=== PATIENT | female | born 1990 | race Caucasian/White ===

== ENCOUNTER 2024-09-11 13:49 | Outpatient (CLI) | payer OTHER, SELFPAY ==
--- OUTSIDE RECORDS SUMMARY | 2024-09-11 13:54 | XMS_ITS | Continuity of Care Document ---
Author Organization [facility] [place] Address [address] [place] [place] [address] Care Team Providers Care Teletypewriter Operator Name Role Phone RHIANNON GANNON Primary Care Provider Assessment No assessment recorded. Plan of Treatment Reminders Order Date Submit Date Provider Last Modified By Organization Details Last Modified Time Details Appointments U/S OB SNEAK PEAK 2024 10:30A M ULTRASOUND Not available Not available Not available OB SCREEN 2024 11:15A M Betty Baker CNM Not available Not available Not available Lab None recorde d. Referral None recorde d. Procedures None recorde d. Surgeries None recorde d. Imaging US, obstetr ic, transva ginal 2024 025 [email or web address] [place], [address], [place], [address], 09/11/2024 13:25:15 Medication Orders None recorde d. Patient TargetsNo targets recorded. Patient InstructionsNo instructions recorded. Reason for Referral None Reported. Results Created Date Observation Date Name Description Value Unit Range Abnormal Flag Note LastModifiedBy Organization Detail LastModifiedTime 09/11/1909/11/2024 US, obste tric, trans vagin al No observ ation record ed. [email or web address] [place] [address], [place], [address], 09/11/2024 13:24:12 09/11/19 25 09/11/2024 US, obste tric, trans vagin al No observ ation record ed. [id number], [place], [address], 09/11/2024 12:35:03 Result Notes None recorded. Procedures Surgical History Date Name Laterality Status Provider Name and Address Organization Details Recorded Time 05/03/20 23 Nexplanon Removal completed JUAN Hansen [address], [place], [address], [facility] 05/03/2023 14:26:13 05/15/20 20 Control Implant Insertion completed Betty Baker CNM [address], [place], [address], [facility] 05/15/2020 14:42:53 07/31/19 20 Date of Last Pap Smear completed [facility] 04/27/2020 16:22:24 11/22/19 16 procedure on gallbladder completed [facility] 04/27/2020 15:09:21 07/24/19 14 Tonsillectomy completed [facility] 09/11/2024 12:56:21 07/24/19 13 extraction of wisdom tooth completed [facility] 09/11/2024 12:55:48 07/24/19 07 procedure on wrist completed [facility] 09/11/2024 12:56:10 07/24/19 05 procedure on wrist completed [facility] 09/11/2024 12:55:55 Imaging Results Imaging Date Name Status LastModified by Organization Details LastModified Time 09/11/2024 US, obstetric, transvaginal completed [email or web address] [place] [address], [place], [address], 09/11/2024 13:24:12 Procedure Notes None recorded. Medical Equipment None Reported. Allergies No known drug allergies Medications Name Sig Start Date Stop Date Status Note LastModified by Organization Details LastModified Time albuterol sulfate 2.5 mg/3 mL (0.083 %) solution for nebulizat ion USE 1 VIAL VIA NEBULIZE R FOUR TIMES DAILY NEEDED FOR SEVERE ASTHMA ATTACK active Not Available Not Available No t Available fluconazo le 150 mg tablet TAKE 1 TABLET BY MOUTH FOR 1 DAY DIRECTED 09/11 completed Not Available Not Available Not Available phentermi ne 37.5 mg tablet TAKE 1 TABLET BY MOUTH EVERY DAY 09/11 completed Not Available Not Available Not Available monteluka st 10 mg tablet TAKE 1 TABLET BY MOUTH DAILY IN THE EVENING 09/11 completed Not Available Not Available Not Available albuterol sulfate HFA 90 mcg/actua tion aerosol inhaler INHALE 2 PUFFS BY MOUTH EVERY 4 TO 6 HOURS NEEDED active Not Available Not Available No t Available fluticaso ne propionat e 110 mcg/actua tion HFA aerosol inhaler INHALE 1 TO 2 PUFFS BY MOUTH TWICE DAILY 09/11 completed Not Available Not Available Not Available amoxicill in 875 mg-potass ium clavulana te 125 mg tablet TAKE 1 TABLET BY MOUTH EVERY 12 HOURS FOR 7 DAYS 09/11 completed Not Available Not Available Not Available Spiriva with HandiHale r 18 mcg and inhalatio n capsules INHALE THE CONTENTS OF 1 CAPSULE VIA INHALATI ON DEVICE EVERY DAY 09/01 completed Not Available Not Available Not Available fluticaso ne propionat e 09/11 completed Not Available Not Available Not Available Symbicort 160 mcg-4.5 mcg/actua tion HFA aerosol inhaler INHALE 2 PUFFS BY MOUTH TWICE DAILY 09/01 completed Not Available Not Available Not Available Symbicort 80 mcg-4.5 mcg/actua tion HFA aerosol inhaler 09/01 completed Not Available Not Available Not Available Nexplanon 68 mg subdermal implant Inject by subcutan eous route. 09/01 completed nexplano n inserted 05/15/20 removal date 05/15/20 Not Available Not Available Not Available ProAir RespiClic k 90 mcg/actua tion breath activated inhale 2 puff by inhalati on route every 4 - 6 hours as needed 09/01 completed Prescrib darion Muhammad e: No [facility]ify By: [email or web address] Encounte r DateTime : 03/20/20 10:15:00 AM Not Available Not Available Not Available Vienva 0.1 mg-20 mcg tablet TAKE 1 TABLET BY MOUTH EVERY DAY 09/01 completed Not Available Not Available Not Available Wixela Inhub 250 mcg-50 mcg/dose powder for inhalatio n 09/01 completed Not Available Not Available Not Available Trelegy Ellipta 200 mcg-62.5 mcg-25 mcg powder for inhalatio n INHALE 1 PUFF BY MOUTH EVERY DAY 09/11 completed Not Available Not Available Not Available Vitals Date Recorded Body height Body mass index (BMI) Body weight Systolic blood pressure Diastolic blood pressure Provider Name and Address Organization Details Last Updated DateTime 09/11/2024 170.18 cm 39.9 kg/m2 360091.0 5 g 150 mm[Hg] 100 mm[Hg] Mehreen Amado [facility] 12:18:49 Social History Question Answer Notes LastModified by Organizat ion Details LastModified Time Tobacco Smoking Status Current Every Day Smoker Mehreen Amado [facility] 05/15/2020 13:29:13 What Is Your Level Of Alcohol Consumption? None [email or web address] Information not available 09/11/2024 Are You Blind Or Do You Have Difficulty Seeing? No Information not available 09/01/2023 What Is Your Level Of Caffeine Consumption? Heavy Information not available 09/01/2023 In The 14 Days Before Symptom Onset, Have You Had Close Contact With A Laboratory-confir med COVID-19 While That Case Was Ill? No Information not available 09/01/2023 In The 14 Days Before Symptom Onset, Have You Had Close Contact With A Person Who Is Under Investigation For COVID-19 While That Person Was Ill? No Information not available 09/01/2023 Have You Been To An Area Known To Be High Risk For COVID-19? No Information not available 09/01/2023 Are You Deaf Or Do You Have Serious Difficulty Hearing? No Information not available 09/01/2023 What Type Of Diet Are You Following? REGULAR Information not available 09/01/2023 Do You Or Have You Ever Used E-cigarettes Or Vape? Current User Of Electronic Cigarettes [email or web address] Information not available 05/15/2020 What Is The Highest Grade Or Level Of School You Have Completed Or The Highest Degree You Have Received? 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 No Information not available 09/01/2023 What Was The Date Of Your Most Recent Tobacco Screening? 09/11/2024 Information not available 09/11/2024 Do You Use Protection During Sex? No Information not available 09/01/2023 Do You Use Your Seat Belt Or Car Seat Routinely? Yes Information not available 09/01/2023 Do You Have Smoke And Carbon Monoxide Detectors In Your Home? Yes Information not available 09/01/2023 Do You Or Have You Ever Used Smokeless Tobacco? Never Used Smokeless Tobacco [email or web address] Information not available 05/15/2020 How Much Tobacco Do You Smoke? No Information not available 09/01/2023 Do You Feel Stressed (tense, Restless, Nervous, Or Anxious, Or Unable To Sleep At Night)? [id number] Information not available 09/01/2023 Do You Use Any Illicit Or Recreational Drugs? Yes [email or web address] Information not available 09/11/2024 Do You Use Sunscreen Routinely? Yes Information not available 09/01/2023 Have You Used IV Drugs? No Information not available 09/01/2023 Sex: Unknown Functional Status Question Answer Note LastModified by Organizat ion Details LastModified Time Do you have difficulty walking or climbing stairs? No [email or web address] Information not available 09/11/2024 Are you able to walk? YESWOREST Information not available 09/01/2023 Are you able to care for yourself? Yes [email or web address] Information not available 09/11/2024 Do you have difficulty dressing or bathing? No [email or web address] Information not available 09/11/2024 What is your exercise level? None Information not available 09/01/2023 Mental Status None recorded. Family History Relationship Description Onset Age of this Age Resolved Age Notes LastModified by Organization Details LastModified Time Father Heart disease [email or web address] Not available 2019 15:00:43 Father Diabetes mellitus [email or web address] Not available 2019 15:06:39 Father Asthma jgumber Not available 15:06:49 Father Hypertensive disorder jgumber Not available 2019 15:06:58 Maternal Grandmother Family history of breast cancer [email or web address] Not available 2024 11:30:11 Paternal Grandfather Blood coagulation disorder jgumber Not available 2019 15:07:31 Paternal Grandfather Malignant tumor of colon jgumber Not available 2019 15:07:47 Maternal Grandfather Malignant tumor of colon jgumber Not available 2019 15:07:47 Maternal Grandfather Mental disorder psychi atric diseas e jgumber Not available 04/27/2020 15:08:11 Notes:Father: Asthma, Hypert ension, Diabetes mellitus, Heart disease Maternal grandfather: Cancer, colon, psychiatric disease Maternal grandmother: breast Paternal grandfather: Cancer, colon, Bleeding disorder Medical History Condition Response Allergies (Food, seasonal, environmental ) Y Other Y Breast Cancer N Drug/Latex Allergies/Reactions N Blood Transfusion N Dermatologic Disorders N Lung Disease N Defects or Inherited Disease N Breast Problem N Gestational Diabetes N Hematologic disorders N Anesthesia Complications N History of STI N Deep Vein Thrombosis N Polycystic ovary syndrome N Anxiety Disorder N Autoimmune disease N Arthritis N Infertility N Polyps N Acid Reflux (GERD) N History of abnormal pap N Cancer N Stroke N Varicosities N Neurologic/Epilepsy Y Endometriosis N High Cholesterol N Headaches N Fibromyalgia N Kidney Disease N Heart Problems N Kidney or Bladder Problems N Thyroid Problems N GI Problems N Eating Disorder N Anemia N Art (IVF or FET) N Psychiatric Illness N Ovarian Cancer N Diabetes N Pulmonary (TB, Asthma) N Hepatitis/Liver Disease N No Past Medical History N Eczema N Urinary Tract Infection N Abuse/Domestic Violence N Asthma Y Trauma/Violence N Depression/ depression N Heart Disease N Pre-Eclampsia N Hypertension N Osteoporosis N Thrombophilias N Gynecological History Statement/Question Response Date of Last Mammogram Flow Moderate Date of LMP 07/12/2024 N Was last menstrual period normal Y STIs/STDs N Date of Last Colonoscopy Desired Control Method Abnormal Pap N On BCP's at Conception? N HPV Vaccine Y Duration of Flow (days) 5 Current Control Method None Age at First Child 29 Are cycles usually normal Y Frequency of Cycle (Q days) 30 Sexually Active? Y Menses Monthly Y Date of DEXA bone scan Date of Last Pap Smear 07/31/2019 Sexual Problems? N LMP Approximate N Obstetrics History GPAL:G 2 P 1 0 1 1 Type Value Full Term 1 Spontaneous 1 Living 1 Total 2 Past Encounters Encounter ID Performer Location Encounter Start Date Encounter Closed Date Diagnosis/Indication Diagnosis SNOMED-CT Code Diagnosis ICD10 Code Diagnosis Note [id number] Linda Stackdc [place] [address] [address] 09/11/2024 11:29:52 09/11/2024 12:26:58 Missed miscarriage 08087830 O02.1 Z3A.01 [id number] Betty Baker CNM [place] [address] [address] 09/11/2024 11:30:08 09/11/2024 12:54:25 Threatened miscarriage 95880019 O20.0 plan labs today and mondayrevi ewed precaution scall if any changesdis cussed options if HCG does not decrease Health Concerns Section Related Observation LastModified by Organization Detai ls LastModified Time None Recorded Concern Status LastModified by Organization Details LastModified Time None Recorded Payers Encounter Date Sequence Insurance Name Policy Number Policy Harris Covered Member ID Harris Member ID Guarantor Name 09/11/2024 1 [facility] ON OR AFTER 01/21/21 (MEDICAID REPLACEMENT - HMO) Miroslava Bailey [id number] Miroslava Bailey Notes Date Note Type Note Provider Name and Address Organization Details Recorded Time 09/11/2024 text/html +UPT, spotting, no crampingblood type B+ Betty Baker CNM [address], [place], [address], [facility] 09/11/2024 12:47:21 OBGyn Episode No OBEpisode recorded.
--- OUTSIDE RECORDS SUMMARY | 2024-09-11 13:54 | XMS_ITS | CCD ---
Author Organization [facility] Address [address] [place] [address] Care Team Providers Care Superintendent Board Mill Name Role Phone Unavailable Primary Care Provider Unavailabl e Allergies No known active allergies Medications albuterol HFA (PROVENTIL HFA;VENTOLIN HFA) 90 mcg/actuation inhaler 02/01/2022 Active Symbicort 160-4.5 mcg/actuation inhaler Inhale 2 puffs in the morning and at bedtime. 01/22/2022 Active montelukast (SINGULAIR) 10 mg tablet 01/30/2022 Active Spiriva with HandiHaler 18 mcg inhalation capsule 01/30/2022 Active Active Problems No known active problems Social History Tobacco Use Types Packs/Day Years Used Date Smoking Tobacco: Never Smokeless Tobacco: Never Tobacco Cessation:Counseling Given: Not Answered Alcohol Use Standard Drinks/Week Not Currently 0 (1 standard drink = 0.6 oz pure alcohol) Comments Unknown Sex and Gender Information Value Date Recorded Sex Assigned at Not on file Legal Sex Female 5:44 AM PDT Gender Identity Female 02/02/2022 6:02 AM PDT Sexual Orientation Not on file Last Filed Vital Signs Vital Sign Reading Time Taken Comments Blood Pressure 130/75 02/02/2022 9:27 AM CDT Pulse 83 02/02/2022 9:27 AM CDT Temperature - - Respiratory Rate - - Oxygen Saturation - - Inhaled Oxygen Concentration - - Weight - - Height - - Body Mass Index - - Plan of Treatment Not on file Procedures Procedure Name Priority Date/Time Associated Diagnosis Comments NEW PATIENT PANO Routine 02/02/2022 9:30 AM CDT NEW PATIENT SPECIAL EXAM - ADULT Routine 02/02/2022 9:30 AM CDT from Last 3 Months or Most Recently Relevant to Health Maintenance
--- OUTSIDE RECORDS SUMMARY | 2024-09-11 13:54 | XMS_ITS | Encounter Summary ---
Author Organization [facility] Address [address] [place] [address] Care Team Providers Care Plaster Maker Name Role Phone Unavailable Primary Care Provider Unavailabl e Prior Encounters Date Type Department Care Team Description 02/02/2022 9:30 AM CDT Office Visit [facility] [address] [place] [address] Xavi Peoples DDS Last Filed Vital Signs Vital Sign Reading [...] Procedure Name Priority Date/Time Associated Diagnosis Comments 4 EXTRACTION, ERUPTED TOOTH REQUIRING REMOVAL OF BONE AND/OR SECTIONING OF TOOTH Routine 02/02/2022 9:30 AM CDT DENTAL PLAN ENROLL 1 Routine 02/02/2022 9:30 AM CDT NEW PATIENT PHOTO INTRA ORAL Routine 02/02/2022 9:30 AM CDT NEW PATIENT PHOTO INTRA ORAL Routine 02/02/2022 9:30 AM CDT NEW PATIENT PHOTO INTRA ORAL Routine 02/02/2022 9:30 AM CDT NEW PATIENT PHOTO INTRA ORAL Routine 02/02/2022 9:30 AM CDT NEW PATIENT PANO Routine 02/02/2022 9:30 AM CDT NEW PATIENT SPECIAL EXAM - ADULT Routine 02/02/2022 9:30 AM CDT 14 CEREC CROWN Routine 02/02/2022 12:00 AM CDT 14 ROOT CANAL Routine 02/02/2022 12:00 AM CDT Visit Diagnoses Not on file
--- OUTSIDE RECORDS SUMMARY | 2024-09-11 13:54 | XMS_ITS ---
Author Organization [facility] Address [address] [place] [address] Care Team Providers Care Sign Board Erector Name Role Phone Unavailable Unavailable Unavailable Surgery Details Not on file Complications Check Surgery Details section. Procedure Estimated Blood Loss Check Surgery Details section. Procedure Findings Check Surgery Details section. Procedure Specimens Taken Check Surgery Details section.
--- OUTSIDE RECORDS SUMMARY | 2024-09-11 13:54 | XMS_ITS | Continuity of Care Document ---
Author Organization [facility] Address [address] [place] [address] Care Team Providers Care Shot Polisher Name Role Phone RHIANNON GANNON Primary Care [...] recorde d. Surgeries None recorde d. Imaging None recorde d. Medication Orders None recorde d. Patient TargetsNo targets recorded. Patient InstructionsNo instructions recorded. Reason for Referral None Reported. Results Created Date Observation Date Name Description Value Unit Range Abnormal Flag Note LastModifiedBy Organization Detail LastModifiedTime 09/11/1909/11/2024 US, obste tric, trans vagin al No observ ation record ed. [email or web address] [place] [address], [place], [address], 09/11/2024 13:24:12 09/11/19 25 09/11/2024 US, obste tric, trans vagin al No observ ation record ed. [email or web address], [place], [address], 09/11/2024 12:35:03 Result Notes None recorded. Procedures Surgical History Date Name Laterality Status Provider Name and Address Organization Details Recorded Time 05/03/20 23 Nexplanon Removal completed JUAN Hansen [address], [place], [address], [facility] 05/03/2023 14:26:13 05/15/20 20 Control Implant Insertion completed Betty Baker CNM [address], [place], [address], [facility] 05/15/2020 14:42:53 07/31/19 20 Date of Last Pap Smear completed [facility] 04/27/2020 16:22:24 11/22/19 16 procedure on gallbladder completed [facility] 04/27/2020 15:09:21 07/24/19 14 Tonsillectomy completed [facility] 09/11/2024 12:56:21 07/24/19 13 extraction of wisdom tooth completed [facility] 09/11/2024 12:55:48 07/24/19 07 procedure on wrist completed [facility] 09/11/2024 12:56:10 07/24/19 05 procedure on wrist completed [facility] 09/11/2024 12:55:55 Imaging Results None recorded. Procedure Notes None recorded. Medical Equipment None [...] 6 hours as needed 09/01 completed Prescrib ed Elsew e: No Locat ion: [facility] odify By: desi subramanian DateTime : 03/20/20 10:15:00 AM Not Available Not Available Not Available Vienva 0.1 mg-20 mcg tablet TAKE 1 TABLET BY MOUTH EVERY DAY 09/01 completed Not Available Not Available Not Available Wixela Inhub 250 mcg-50 mcg/dose powder for inhalatio n 09/01 completed Not Available Not Available Not Available Bert Ellipta 200 mcg-62.5 mcg-25 mcg powder for inhalatio n INHALE 1 PUFF BY MOUTH EVERY DAY 09/11 completed Not Available Not Available Not Available Vitals Date Recorded Body height Body mass index (BMI) Body weight Systolic blood pressure Diastolic blood pressure Provider Name and Address Organization Details Last Updated DateTime 09/11/2024 170.18 cm 39.9 kg/m2 789073.0 5 g 150 mm[Hg] 100 mm[Hg] Mehreen Amado [facility] 12:18:49 Social History Question Answer Notes LastModified by Organizat ion Details LastModified Time Tobacco Smoking Status Current Every Day Smoker Mehreen Amado [facility], [facility] 05/15/2020 13:29:13 What Is Your Level Of Alcohol Consumption? None [email or web address] Information not available 09/11/2024 Are You Blind [...] Or Vape? Current User Of Electronic Cigarettes [email or web address] Information not available 05/15/2020 What Is The Highest Grade Or Level Of School You Have Completed Or The Highest Degree You Have Received? 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 No Information not available 09/01/2023 What Was The Date Of Your Most Recent Tobacco Screening? 09/11/2024 [email or web address] Information not available 09/11/2024 Do You Use Protection During Sex? No Information not available 09/01/2023 Do You Use Your Seat Belt Or Car Seat Routinely? Yes Information not available 09/01/2023 Do You Have Smoke And Carbon Monoxide Detectors In Your Home? Yes Information not available 09/01/2023 Do You Or Have You Ever Used Smokeless Tobacco? Never Used Smokeless Tobacco [email or web address] Information not available 05/15/2020 How Much Tobacco Do You Smoke? No Information not available 09/01/2023 Do You Feel Stressed (tense, Restless, Nervous, Or Anxious, Or Unable To Sleep At Night)? [id number] Information not available 09/01/2023 Do You Use Any Illicit Or Recreational Drugs? Yes [email or web address] Information not available 09/11/2024 Do You Use Sunscreen Routinely? Yes Information not available 09/01/2023 Have You Used IV Drugs? No Information not available 09/01/2023 Sex: Unknown Functional Status Question Answer Note LastModified by Organizat ion Details LastModified Time Do you have difficulty walking or climbing stairs? No [email or web address] Information not available 09/11/2024 Are you able to walk? [email or web address] Information not available 09/01/2023 Are you able to care for yourself? Yes [email or web address] Information not available 09/11/2024 Do you have difficulty dressing or bathing? No [email or web address] Information not available 09/11/2024 What is your [...] Maternal Grandmother Family history of breast cancer Not available 2024 11:30:11 Paternal Grandfather Blood [...] SNOMED-CT Code Diagnosis ICD10 Code Diagnosis Note [id number] Linda Corley [place] [address] [address] 09/11/2024 11:29:52 09/11/2024 12:26:58 Missed miscarriage 63008856 O02.1 Z3A.01 [id number] Betty Baker CNM [place] [address] [address] 09/11/2024 11:30:08 09/11/2024 12:54:25 Threatened miscarriage 08139414 O20.0 plan labs today and mondayrevi ewed precaution scall if any changesdis cussed options if HCG does not decrease Health Concerns Section Related Observation LastModified by Organization Detai ls LastModified Time None Recorded Concern Status LastModified by Organization Details LastModified Time None Recorded Payers Encounter Date Sequence Insurance Name Policy Number Policy Harris Covered Member ID Harris Member ID Guarantor Name 09/11/2024 1 [facility] [employer] ON OR AFTER 01/21/21 (MEDICAID REPLACEMENT - HMO) Miroslava Bailey [id number] Miroslava Bailey Notes Date Note Type Note Provider Name and Address Organization Details Recorded Time 09/11/2024 text/html +UPT, spotting, no crampingblood type B+ Betty Baker CNM [address], [place], [address], [facility] 09/11/2024 12:47:21 OBGyn Episode No OBEpisode recorded.
--- OUTSIDE RECORDS SUMMARY | 2024-09-11 13:54 | XMS_ITS | Clinical Summary ---
Author Organization [facility] Address [address] [place] [address] Care Team Providers Care Metalworking Specialist Name Role Phone Unavailable Primary Care Provider [...] Given: Not Answered Alcohol Use Standard Drinks/Week Comments Not Currently 0 (1 standard drink = 0.6 oz pur e alcohol) Comments Unknown Sex and Gender Information [...] Mass Index - - Plan of Treatment Health Maintenance Due Date Last Done Comments Dental Prophylaxis 1992 Dental Oral Exam 08/06/2022 02/02/2022 Dental X-Ray: Bitewings 08/06/2022 02/02/2022 Dental X-Ray: Full Mouth 02/04/2025 02/03/2022, 01/21 Dental X-Ray: Panoramic 02/04/2025 02/03/2022, 02/02 Meningococcal B Vaccine Aged Out No l onger eligible based on patient's age to complete this topic Procedures Procedure Name Priority Date/Time Associated Diagnosis Comments NEW PATIENT PANO Routine 02/02/2022 9:30 AM CDT NEW PATIENT SPECIAL EXAM - ADULT Routine 02/02/2022 9:30 AM CDT from Last 3 Months or Most Recently Relevant to Health Maintenance
--- OUTSIDE RECORDS SUMMARY | 2024-09-11 13:54 | XMS_ITS | Data Portability ---
Author Organization [facility] Address [address] [place] [address] Care Team Providers Care Procurement Engineer Name Role Phone RHIANNON GANNON Primary Care Provider Assessment No assessment recorded. Plan of Treatment Reminders Order Date Submit Date Provider Last Modified By Organization Details Last Modified Time Details Appointments U/S OB SNEAK PEAK 2024 10:30A M ULTRASOUND Not available Not available Not available OB SCREEN 2024 11:15A M Betty Baker CNM Not available Not available Not available Lab pregnan cy test, urine 2022 023 [facility], [address], [place], [address], 05/03/2023 14:27:08 Referral None recorde d. Procedures None recorde d. Surgeries None recorde d. Imaging US, obstetr ic, transva ginal 2024 025 [email or web address] [place], [address], [place], [address], 09/11/2024 13:25:15 Medication Orders Difluca n 150 mg tablet 2023 024 [email or web address] [id number], [address], [place], [id number], 09/11/2024 12:19:23 Patient TargetsNo targets recorded. Patient Instructions Encounter Date Encounter Id Patient Instructions Last Modified By Organization Details Last Modified Time 05/15/2020 [id number] surgical trays* layran Not available 07/08/2020 09:45:55 05/03/2023 [id number] surgical trays* JUAN Not available 05/05/2024 05:01:04 Reason for Referral None Reported. Results Created Date Observation Date Name Description Value Unit Range Abnormal Flag Note LastModifiedBy Organization Detail LastModifiedTime 05/15/2005/15/2020 pregn abi test, urine HCG negati ve Not Available [place] [address], [place], [address], 05/15/2020 13:30:47 05/03/2005/03/2023 pregn abi test, urine HCG negati ve Not Available [place] [address], [place], [address], 05/03/2023 14:27:00 09/11/19 25 09/11/2024 US, obste tric, trans vagin al No observ ation record ed. [email or web address] [place] [address], [place], [address], 09/11/2024 13:24:12 09/11/19 25 09/11/2024 US, obste tric, trans vagin al No observ ation record ed. [id number], [place], [address], 09/11/2024 12:35:03 Result Notes None recorded. Procedures Surgical History Date Name Laterality Status Provider Name and Address Organization Details Recorded Time 05/03/20 Nexplanon Removal completed JUAN Hansen [address], [place], [address], [place] [facility] 05/03/2023 14:26:13 05/15/20 Control Implant Insertion completed Betty Baker CNM [address], [place], [address], [place] [facility] 05/15/2020 14:42:53 07/31/19 20 Date of Last Pap Smear completed [facility] 04/27/2020 16:22:24 11/22/19 16 procedure on gallbladder completed Nevin [facility] 04/27/2020 15:09:21 07/24/19 14 Tonsillectomy completed [facility] 09/11/2024 12:56:21 07/24/19 13 extraction of wisdom tooth completed [facility] 09/11/2024 12:55:48 07/24/19 07 procedure on wrist completed [facility] 09/11/2024 12:56:10 07/24/19 05 procedure on wrist completed [facility] 09/11/2024 12:55:55 Imaging Results Imaging Date Name Status LastModified by Organization Details LastModified Time 09/11/2024 US, obstetric, transvaginal completed [email or web address] [place] [address], [place], [address], 09/11/2024 13:24:12 09/11/2024 US, obstetric, transvaginal active [id number], [facility], [place], [address], 09/11/2024 12:35:03 Procedure Notes None recorded. Medical Equipment None [...] Prescrib darion Muhammad e: No Locat ion: Anay vera [facility] odify By: desi subramanian DateTime : 03/20/20 10:15:00 AM Not Available Not Available Not Available Vienva 0.1 mg-20 mcg tablet TAKE 1 TABLET BY MOUTH EVERY DAY 09/01 completed Not Available Not Available Not Available Wixela Inhub 250 mcg-50 mcg/dose powder for inhalatio n 09/01 completed Not Available Not Available Not Available Nathanielleroseanne Ellipta 200 mcg-62.5 mcg-25 mcg powder for inhalatio n INHALE 1 PUFF BY MOUTH EVERY DAY 09/11 completed Not Available Not Available Not Available Vitals Date Recorded Body height Body mass index (BMI) Body weight Systolic blood pressure Diastolic blood pressure Provider Name and Address Organization Details Last Updated DateTime 05/03/2023 170.18 cm 45.1 kg/m2 989618.6 g 128 mm[Hg] 70 mm[Hg] Susana Browne [facility] 3 14:01:18 Date Recorded Body height Body mass index (BMI) Body weight Systolic blood pressure Diastolic blood pressure Provider Name and Address Organization Details Last Updated DateTime 09/01/2023 170.18 cm 46 kg/m2 437096.1 6 g 116 mm[Hg] 74 mm[Hg] Naomie Doshi [facility] 4 13:22:36 Date Recorded Body height Body mass index (BMI) Body weight Systolic blood pressure Diastolic blood pressure Provider Name and Address Organization Details Last Updated DateTime 05/15/2020 170.18 cm 45.1 kg/m2 866655.6 g 130 mm[Hg] 86 mm[Hg] Mehreen Amado [facility] 0 13:27:40 Date Recorded Body height Body mass index (BMI) Body weight Systolic blood pressure Diastolic blood pressure Provider Name and Address Organization Details Last Updated DateTime 09/11/2024 170.18 cm 39.9 kg/m2 826162.0 5 g 150 mm[Hg] 100 mm[Hg] Mehreen Amado [facility] 5 12:18:49 Social History Question Answer Notes LastModified by Organizat ion Details LastModified Time Tobacco Smoking Status Current Every Day Smoker Mehreen Amado [facility] 05/15/2020 13:29:13 What Is Your Level Of Alcohol Consumption? None [email or web address] Information not available 09/11/2024 Are You Blind [...] Or Vape? Current User Of Electronic Cigarettes Information not available 05/15/2020 What Is The Highest Grade Or Level Of School You Have Completed Or The Highest Degree You Have Received? 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 No Information not available 09/01/2023 What Was The Date Of Your Most Recent Tobacco Screening? 09/11/2024 [email or web address] Information not available 09/11/2024 Do You Use Protection During Sex? No Information not available 09/01/2023 Do You Use Your Seat Belt Or Car Seat Routinely? Yes Information not available 09/01/2023 Do You Have Smoke And Carbon Monoxide Detectors In Your Home? Yes Information not available 09/01/2023 Do You Or Have You Ever Used Smokeless Tobacco? Never Used Smokeless Tobacco [email or web address] Information not available 05/15/2020 How Much Tobacco Do You Smoke? No Information not available 09/01/2023 Do You Feel Stressed (tense, Restless, Nervous, Or Anxious, Or Unable To Sleep At Night)? [id number] Information not available 09/01/2023 Do You Use Any Illicit Or Recreational Drugs? Yes [email or web address] Information not available 09/11/2024 Do You Use Sunscreen Routinely? Yes Information not available 09/01/2023 Have You Used IV Drugs? No Information not available 09/01/2023 Sex: Unknown Functional Status Question Answer Note LastModified by Organizat ion Details LastModified Time Do you have difficulty walking or climbing stairs? No [email or web address] Information not available 09/11/2024 Are you able to walk? YESWOREST Information not available 09/01/2023 Are you able to care for yourself? Yes [email or web address] Information not available 09/11/2024 Do you have difficulty dressing or bathing? No [email or web address] Information not available 09/11/2024 What is your [...] Maternal Grandmother Family history of breast cancer [email or web address] Not available 2024 11:30:11 Paternal Grandfather Blood [...] SNOMED-CT Code Diagnosis ICD10 Code Diagnosis Note [id number] Rupal Muller [place] [address] [address] 04/27/2020 16:17:59 04/27/2020 16:59:09 Contraception care management 701195894 Z30.9 Discussed all options in detail. Pt would like nexplanon. Discussed risk and benefit. Pt verbalized understand ing. If covered she will call us on the first day of her cycle to schedule placement. [id number] Betty Baker CNM [place] [address] [address] 05/15/2020 12:44:02 05/15/2020 15:05:09 Insertion of subcutaneous contraceptive [id number] Z30.9 f/u wwe [id number] Bernadette Pereira FRANCISCO [place] [address],[place] [address] 05/03/2023 13:48:29 05/03/2023 14:39:37 Removal of subcutaneous contraceptive 924755483 Z30.46 Removal site was cleansed with betadine and 3cc of lidocaine used for anesthesia . Device was removed in normal fashion without difficulty . 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 All questions were answered to patient satisfacti on. Time spent in visit is a total of 18 mins with at least 50% of visit consisting of counseling and review of plan of care. [id number] Linda Corley [facility] [place] [address],[place] [address] 09/11/2024 11:29:52 09/11/2024 12:26:58 Missed miscarriage 48771283 O02.1 Z3A.01 [id number] [facility] [address],[place] [address] 09/11/2024 11:30:08 09/11/2024 12:54:25 Threatened miscarriage 77905791 O20.0 plan labs today and mondayrevi ewed precaution scall if any changesdis cussed options if HCG does not decrease Health Concerns Section Related Observation LastModified by Organization Detai ls LastModified Time None Recorded Concern Status LastModified by Organization Details LastModified Time None Recorded Advance Directives Directive None Recorded Payers Encounter Date Sequence Insurance Name Policy Number Policy Harris Covered Member ID Harris Member ID Guarantor Name 05/15/2020 1 [facility] - DOS PRIOR TO 2021 (MEDICAID REPLACEMENT - HMO) Miroslava Bailey [id number] Miroslvaa Bailey 05/03/2023 1 [facility] ON OR AFTER 01/21/21 (MEDICAID REPLACEMENT - HMO) Miroslava Bailey [id number] Miroslava Bailey 09/01/2023 1 [facility] ON OR AFTER 01/21/21 (MEDICAID REPLACEMENT - HMO) Miroslava Bailey [id number] Miroslava Bailey 09/11/2024 1 [facility] ON OR AFTER 01/21/21 (MEDICAID REPLACEMENT - HMO) Miroslava Bailey [id number] Miroslava Bailey 09/11/2024 1 [facility] ON OR AFTER 01/21/21 (MEDICAID REPLACEMENT - HMO) Mirolsava Bailey [id number] Miroslava Bailey Notes Date Note Type Note Provider Name and Address Organization Details Recorded Time 05/15/2020 text/html pt here for nexp lanon reviewed procedure no questions will be placed in left arm Betty Baker CNM [address], [place], [address], [facility] 05/15/2020 14:43:47 05/03/2023 text/html 32yopresents for nexplanon removalnexplanon inserted 05/15/2020considering JUAN Fernandez [address], [place], [address], [facility] 05/03/2023 14:28:19 09/01/2023 text/html Vaginal/Vulvar ProblemReported bypatient.Location:[facility] Onset/Timing:abrupt Duration:present for 1-7 days Quality:itching; tender; irritation Severity:mild Context:recent antibiotic use Alleviating Factors:none Aggravating Factors:none Associated Symptoms:no vaginal pain; no vulvar swelling/erythema; no vulvar pain; no vulvar lesions; no pelvic pain; no dyspareunia; no dysuria; no fever; no abdominal pain;vaginal itching;vaginal irritation;vulvar itching/irritation [facility] [address], [place], [address], [place] [facility] 09/04/2023 23:47:37 09/11/2024 text/html +UPT, spotting, no crampingblood type B+ Betty Baker CNM [address], [place], [address], [facility] 09/11/2024 12:47:21 OBGyn Episode Ob Episode Information Episode Created Date Number of Fetuses Patient Bloodtype Patient rh Status Prepregnancy Weight lbs Domestic Partner Domestic Partner Phone Father Name Hand Inserter Operator Status 04/27/20 20 1 CLOSED Fetus Data First Name Last Name Admitted to NICU Weight (g) Sex Living Outcome Pediatric Complications Fetus ID Race Codes Race Delivery Type 2976.47 0704 M Full Term [id number] Vaginal Delivery Sampson Calculation Initial Sampson Date Initial Exam Date Initial Exam Provider Initial Ultrasound Date Last Menstrual Period Date Ultra Sound Weeks Gestation 0 Eighteen To Twenty Week Sampson Update Ultra Sound Date Fundal Height At Umbil Quickening Date Ultra Sound Latest Weeks Gestation Final Sampson Confirmed By Final Sampson Confirmed Date Final Sampson Date Ultra Sound Latest Days Gestation 0 0 Menstrual History Last Menstrual Date Menses Monthly On Bcp Conception Prior Menses Frequency Hcg Plus Date Menarche Onset Age Delivery Information Delivery Date Delivery Type Labor Anesthesia Weeks Gestation Incision Type Labor Labor Length Hrs Delivered By Post Complications Tubal Sterilization Discharge Date Comments 9 40 Discharge Information Feeding Method Contraceptive Method Maternal HG B and HCT Levels Ob Episode Information Episode Created Date Number of Fetuses Patient Bloodtype Patient rh Status Prepregnancy Weight lbs Domestic Partner Domestic Partner Phone Father Name Hand Inserter Operator Status 09/11/19 25 1 CLOSED Fetus Data First Name Last Name Admitted to NICU Weight (g) Sex Living Outcome Pediatric Complications Fetus ID Race Codes Race Delivery Type , Spontane ous [id number] Sampson Calculation Initial Sampson Date Initial Exam Date Initial Exam Provider Initial Ultrasound Date Last Menstrual Period Date Ultra Sound Weeks Gestation 0 Eighteen To Twenty Week Sampson Update Ultra Sound Date Fundal Height At Umbil Quickening Date Ultra Sound Latest Weeks Gestation Final Sampson Confirmed By Final Sampson Confirmed Date Final Sampson Date Ultra Sound Latest Days Gestation 0 0 Menstrual History Last Menstrual Date Menses Monthly On Bcp Conception Prior Menses Frequency Hcg Plus Date Menarche Onset Age Delivery Information Delivery Date Delivery Type Labor Anesthesia Weeks Gestation Incision Type Labor Labor Length Hrs Delivered By Post Complications Tubal Sterilization Discharge Date Comments 5 Discharge Information Feeding Method Contraceptive Method Maternal HG B and HCT Levels
--- OUTSIDE RECORDS SUMMARY | 2024-09-11 13:54 | XMS_ITS | Referral Summary ---
Author Organization [facility] Address [address] [place] [address] Care Team Providers Care General Assembler Installer Name Role Phone Unavailable Primary Care Provider [...]
--- OUTSIDE RECORDS SUMMARY | 2024-09-11 13:54 | XMS_ITS | Data Portability ---
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 Plan of Treatment Reminders Order Date Submit Date Provider Last Modified By Organization Details Last Modified Time Details Appointments None recorded. Lab influenza virus A + B + SARS-CoV-2 (COVID19) Ag panel, rapid IA, upper respiratory specimen 2023 024 In-Office Order, Internal Use Only DO Not Attach Compendium DO Not Attach Compendium, Do Not Delete/merge, [id number] 11:17:00 rapid SARS CoV 2 Ag, QL IA, respiratory specimen 2021 022 In-Office Order, Internal Use Only DO Not Attach Compendium DO Not Attach Compendium, Do Not Delete/merge, [id number] 12:20:53 Referral None recorded. Procedures None recorded. Surgeries None recorded. Imaging None recorded. Medication Orders fluticasone propionate 110 mcg/actuati on HFA aerosol inhaler 2024 025 [facility] #75037, [address], [place], [id number], 5 10:45:06 phentermine 37.5 mg tablet 2023 024 [email or web address] #30164, [address], [place], [id number], 5 10:14:51 phentermine 37.5 mg tablet 2023 024 [facility] #92169, [address], [place], [id number], 5 10:14:51 amoxicillin 875 mg-potassiu m clavulanate 125 mg tablet 2023 024 [email or web address] 1 [facility] #05558, [address], [place], [id number], 4 10:38:52 Trelegy Ellipta 200 mcg-62.5 mcg-25 mcg powder for inhalation 2022 023 [email or web address] [facility] #99470, [address], [place], [id number], 5 10:38:58 albuterol sulfate HFA 90 mcg/actuati on aerosol inhaler 2022 023 [facility] #66023, [address], [place], [id number], 3 00:30:17 montelukast 10 mg tablet 2022 023 [facility] #42369, [address], [place], [id number], 5 10:14:48 albuterol sulfate 2.5 mg/3 mL (0.083 %) solution for nebulizatio n 2022 023 [facility] #76480, [address], [place], [id number], 3 00:30:18 Spiriva with HandiHaler 18 mcg and inhalation capsules 2021 [email or web address], [address], [place], [id number], 3 00:27:20 Symbicort 160 mcg-4.5 mcg/actuati on HFA aerosol inhaler 2021 [email or web address]88992, [address], [place], [id number], 3 00:27:26 albuterol sulfate HFA 90 mcg/actuati on aerosol inhaler 2021 [email or web address]65027, [address], [place], [id number], 3 14:06:20 amoxicillin 875 mg-potassiu m clavulanate 125 mg tablet 2021 [email or web address] 1 [facility] #14414, [address], [place], [id number], 4 10:38:52 methylpredn isolone 4 mg tablets in a dose pack 2021 [facility]34953, [address], [place], [id number], 3 14:06:11 fluticasone propionate 50 mcg/actuati on nasal spray,suspe nsion 2021 [facility]42995, [address], [place], [id number], 3 14:06:36 Patient TargetsNo targets recorded. Patient Instructions Encounter Date Encounter Id Patient Instructions Last Modified By Organization Details Last Modified Time 09/07/2023 [id number] A healthy lifestyle: care instructions Not available 09/07/2023 11:31:48 Reviewed the following recommendations: -Stay home and separate from others as much as possible. -Monitor your symptoms and seek medical attention for trouble breathing, persistent chest pain, confusion, or bluish lips or face. -Wear a mask if you must be around other people. -Wash your hands often for 20 seconds with soap and water and clean high-touch surfaces daily -You may discontinue home isolation if your symptoms are improving and it has been 10 days since symptoms started. [email or web address] Not available 09/07/2023 10:21:01 08/22/2024 [id number] nutrition during : care instructions Not available 08/22/2024 10:46:32 exercise during : care instructions Not available 08/22/2024 10:46:32 weeks 6 to 10 of your : care instructions Not available 08/22/2024 10:46:32 Reason for Referral None Reported. Results Created Date Observation Date Name Description Value Unit Range Abnormal Flag Note LastModifiedBy Organization Detail LastModifiedTime 03/18/20 22 03/18/2022 rapid SARS CoV 2 Ag, QL IA, respi rator y speci men rapid SARS CoV 2 Ag, QL IA, respiratory specimen negati ve Not Available In-Office Order Internal Use Only DO Not Attach Compendium DO Not Attach Compendium, Do Not Delete/merge, [id number] 03/18/2022 11:38:51 09/07/19 24 09/07/2023 influ kenney virus A + B + SARS- CoV-2 (COVI D19) Ag panel , rapid IA, upper respi rator y speci men Flu A negati ve Not Available In-Office Order Internal Use Only DO Not Attach Compendium DO Not Attach Compendium, Do Not Delete/merge, [id number] 09/07/2023 10:21:18 09/07/19 24 09/07/2023 influ kenney virus A + B + SARS- CoV-2 (COVI D19) Ag panel , rapid IA, upper respi rator y speci men Flu B negati ve Not Available In-Office Order Internal Use Only DO Not Attach Compendium DO Not Attach Compendium, Do Not Delete/merge, [id number] 09/07/2023 10:21:18 09/07/19 24 09/07/2023 influ kenney virus A + B + SARS- CoV-2 (COVI D19) Ag panel , rapid IA, upper respi rator y speci men Rapid SARS CoV 2 Ag, QL IA, respiratory specimen negati ve Not Available In-Office Order Internal Use Only DO Not Attach Compendium DO Not Attach Compendium, Do Not Delete/merge, [id number] 09/07/2023 10:21:18 Result Notes None recorded. Problems Name Problem SNOMED Code Status Onset Date Resolution Date Notes Provider Name and Address Organization Details Recorded Time - on history 051781762 Completed 201704/18/2019 Melodie Gannon MD Attn: Accounting ,[address] [place], [address] , [facility] 9 12:43:20 Morbid obesity 513103727 Active Not Available [facility] 4 18:58:07 Asthma 918356258 Active Not Available [facility] 4 18:58:07 Seizure 35448531 Active Not Available [facility] 4 18:58:07 Intermit tent asthma uncontro lled 11867643045 02 Completed 201503/07/2018 Melodie Gannon MD Attn: Accounting ,[address] [place], [address] , [facility] 8 18:34:31 Elevated blood-pr essure reading without diagnosi s of hyperten perfecto 215729112 Completed 201103/03/2012 Location : None;Sev erity: Moderate ;Progres s: Stable;A dded By: Melodie Gannon;Add to Current Problems : NO Not Available [facility] 7 08:36:52 Family planning surveill ance Completed 201103/03/2012 Location : None;Sev erity: Moderate ;Progres s: Stable;A dded By: Melodie Gannon;Add to Current Problems : NO Not Available [facility] 7 08:36:52 Ganglion of joint 05645329 Completed 201305/18/2014 Location : None;Sev erity: Moderate ;Progres s: Stable;A dded By: Melodie Gannon;Add to Current Problems : YES Not Available [facility] 7 08:36:52 Asthma 808357005 Completed 201105/01/2015 Location : None;Sev erity: Moderate ;Progres s: Stable;A dded By: Melodie Gannon;Add to Current Problems : YES Melodie Gannon MD Attn: Accounting ,[address] [place], [address] , [facility] 3 08:39:28 Generali zed abdomina l pain 867321789 Completed 201104/29/2012 Location : None;Sev erity: Moderate ;Progres s: Stable;A dded By: Niki Pelletier;Add to Current Problems : NO Not Available [facility] 7 08:36:52 Nausea and vomiting 91782115 Completed 201209/16/2012 Location : None;Sev erity: Moderate ;Progres s: Stable;A dded By: Niki Pelletier;Add to Current Problems : NO Not Available [facility] 7 08:36:52 IgE-medi ated allergic asthma 680107898 Completed 201403/07/2018 Location : None;Sev erity: Moderate ;Progres s: Stable;A dded By: Haylie Sandra;Add to Current Problems : YES Melodie Gannon MD Attn: Accounting ,[address] [place], [address] , [facility] 8 18:34:34 Problem Notes None recorded. Procedures Surgical History Date Name Laterality Status Provider Name and Address Organization Details Recorded Time 015 Tonsillectomy completed [facility] 01/06/2017 17:13:08 015 Removal of adenoids completed [facility] 01/06/2017 17:13:20 013 Cholecystectomy completed [facility] 01/05/2017 13:10:22 Imaging Results None recorded. Procedure Notes None recorded. Medical Equipment None Reported. Allergies No known drug allergies Medications Name Sig Start Date Stop Date Status Note LastModified by Organization Details LastModified Time tri-estaryl la 0.18/0.215/ 0.25 mg-35mcg tabs 02/12 completed Not Available Not Available Not Available advair hfa 45-21 mcg/act aero 03/07 completed Not Available Not Available Not Available tri femynor 0.18/0.215/ 0.25 mg-35 mcg tabs 03/07 completed Not Available Not Available Not Available proair hfa 108 (90 base) mcg/act aers 02/12 completed Not Available Not Available Not Available albuterol sulfate (2.5 mg/3ml) 0.083% nebu 02/12 completed Not Available Not Available Not Available albuterol sulfate 2.5 mg/3 mL (0.083 %) solution for nebulizatio n USE 1 VIAL VIA NEBULIZER FOUR TIMES DAILY NEEDED FOR SEVERE ASTHMA ATTACK active Not Available Not Available No t Available fluconazole 150 mg tablet TAKE 1 TABLET BY MOUTH FOR 1 DAY DIRECTED 08/22 completed Not Available Not Available Not Available prednisone 20 mg tablet take as directed 10/19 completed Not Available Not Available Not Available penicillin V potassium 500 mg tablet TAKE 1 TABLET BY MOUTH FOUR TIMES DAILY 12/02 completed Not Available Not Available Not Available phentermine 37.5 mg tablet TAKE 1 TABLET BY MOUTH EVERY DAY 08/22 completed Not Available Not Available Not Available promethazin e 25 mg tablet Take 1 tablet(s) by mouth q 4 to 6 hr 10/15 completed RxNor m: [id number] 7;All ow Subst ituti on: True Not Available Not Available Not Available fluticasone propionate 44 mcg/actuati on HFA aerosol inhaler Inhale 2 puffs twice a day by inhalatio n route. 01/06 completed Not Available Not Available Not Available montelukast 10 mg tablet TAKE 1 TABLET BY MOUTH DAILY IN THE EVENING 08/22 completed Not Available Not Available Not Available methylpredn isolone 4 mg tablets in a dose pack TAKE DIRECTED 12/02 completed Not Available Not Available Not Available albuterol sulfate HFA 90 mcg/actuati on aerosol inhaler INHALE 2 PUFFS BY MOUTH EVERY 4 TO 6 HOURS NEEDED active Not Available Not Available No t Available fluticasone propionate 50 mcg/actuati on nasal spray,suspe nsion SHAKE LIQUID AND USE 1 SPRAY IN EACH NOSTRIL EVERY DAY 12/02 completed Not Available Not Available Not Available fluticasone propionate 110 mcg/actuati on HFA aerosol inhaler INHALE 1 TO 2 PUFFS BY MOUTH TWICE DAILY active Not Available Not Available No t Available amoxicillin 875 mg-potassiu m clavulanate 125 mg tablet TAKE 1 TABLET BY MOUTH EVERY 12 HOURS FOR 7 DAYS 10/16 completed Not Available Not Available Not Available topiramate 50 mg tablet Take 1 tablet twice a day by oral route. 02/12 completed Not Available Not Available Not Available Spiriva with HandiHaler 18 mcg and inhalation capsules INHALE THE CONTENTS OF 1 CAPSULE VIA INHALATIO N DEVICE EVERY DAY active Not Available Not Available No t Available Advair HFA 45 mcg-21 mcg/actuati on aerosol inhaler TAKE 2 PUFFS BY MOUTH TWICE A DAY 03/07 completed Not Available Not Available Not Available Advair HFA 115 mcg-21 mcg/actuati on aerosol inhaler Inhale 2 puffs twice a day by inhalatio n route. 08/11 completed Not Available Not Available Not Available Symbicort 160 mcg-4.5 mcg/actuati on HFA aerosol inhaler INHALE 2 PUFFS BY MOUTH TWICE DAILY active Not Available Not Available No t Available Symbicort 80 mcg-4.5 mcg/actuati on HFA aerosol inhaler TAKE 2 PUFFS BY MOUTH TWICE A DAY active Not Available Not Available No t Available Dulera 100 mcg-5 mcg/actuati on HFA aerosol inhaler INHALE 2 PUFFS BY MOUTH TWICE A DAY 02/12 completed Not Available Not Available Not Available Asmanex Twisthaler 110 mcg/actuati on (7 doses) breath activated inhalr Inhale 2 puffs every day by inhalatio n route. 07/08 completed Not Available Not Available Not Available Plus (calcium carbonate) 27 mg iron-1 mg tablet Take 1 tablet every day by oral route. 04/18 completed Not Available Not Available Not Available Asmanex HFA 200 mcg/actuati on aerosol inhaler inhale 2 puffs daily. Rinse your mouth well after use 05/28 completed RxNor m: [id number] 48;Al low Subst ituti on: True Not Available Not Available Not Available ProAir RespiClick 90 mcg/actuati on breath activated Inhale 2 puff(s) by mouth q 4 to 6 hr 10/19 completed RxNor m: 31399 61;Al low Subst ituti on: True Not Available Not Available Not Available Vienva 0.1 mg-20 mcg tablet 03/18 completed Not Available Not Available Not Available Tri Femynor (28) 0.18 mg(7)/0.215 mg(7)/0.25 mg(7)-35 mcg tablet TAKE 1 TABLET EVERY DAY 04/18 completed Not Available Not Available Not Available Wixela Inhub 250 mcg-50 mcg/dose powder for inhalation PLEASE SEE ATTACHED FOR DETAILED DIRECTION S active Not Available Not Available No t Available Trelegy Ellipta 200 mcg-62.5 mcg-25 mcg powder for inhalation INHALE 1 PUFF BY MOUTH EVERY DAY active Not Available Not Available No t Available Vitals Date Recorded Body height Body mass index (BMI) Body weight Body temperature Oxygen saturation Oxygen saturation in Arterial blood by Pulse oximetry Heart rate Systolic blood pressure Diastolic blood pressure Provider Name and Address Organization Details Last Updated DateTime 2 170.18 cm 41.5 kg/m2 751273. 98 g 97.3 [degF] 98 % 98 % 100 /min 120 mm[Hg] 82 mm[Hg] Chrissy Nuno MA [facility] 2 11:36:39 Date Recorded Body weight Body mass index (BMI) Body height Body temperature Oxygen saturation Oxygen saturation in Arterial blood by Pulse oximetry Heart rate Systolic blood pressure Diastolic blood pressure Provider Name and Address Organization Details Last Updated DateTime 3 662097. 23 g 44.5 kg/m2 170.18 cm 97.1 [degF] 98 % 98 % 76 /min 122 mm[Hg] 70 mm[Hg] Marcelino Taylor MA [facility] 3 15:43:19 Date Recorded Body height Body mass index (BMI) Body weight Body temperature Heart rate Oxygen saturation Oxygen saturation in Arterial blood by Pulse oximetry Systolic blood pressure Diastolic blood pressure Provider Name and Address Organization Details Last Updated DateTime 4 170.18 cm 45.4 kg/m2 480554. 79 g 97.3 [degF] 79 /min 99 % 99 % 129 mm[Hg] 75 mm[Hg] Pia Garcia MA [facility] 4 11:16:03 Date Recorded Body height Body mass index (BMI) Body weight Body temperature Heart rate Oxygen saturation Oxygen saturation in Arterial blood by Pulse oximetry Systolic blood pressure Diastolic blood pressure Provider Name and Address Organization Details Last Updated DateTime 4 170.18 cm 44.9 kg/m2 072630. 29 g 97.9 [degF] 102 /min 98 % 98 % 124 mm[Hg] 81 mm[Hg] Haylie Sandra MA [facility] 4 10:45:14 Date Recorded Body height Body temperature Oxygen saturation Oxygen saturation in Arterial blood by Pulse oximetry Heart rate Systolic blood pressure Diastolic blood pressure Provider Name and Address Organization Details Last Updated DateTime 5 170.18 cm 97.3 [degF] 99 % 99 % 72 /min 114 mm[Hg] 73 mm[Hg] Pia Garcia MA [facility] 5 10:18:54 Date Recorded Body mass index (BMI) Body weight Provider Name and Address Organization Details Last Updated DateTime 08/22/2024 40.7 kg/m2 966266.02 g JORGE Garcia Attn: Accounting,[address] [place], [address], [facility] 08/22/2024 10:51:40 Social History Question Answer Notes LastModified by Organizat ion Details LastModified Time Tobacco Smoking Status Never Smoker Haylie gibson [facility] 05/11/2016 17:03:42 What Is Your Level Of Alcohol Consumption? None Information not available 08/22/2024 What Is Your Level Of Caffeine Consumption? Heavy Information not available 06/08/2021 What Was The Date Of Your Most Recent Tobacco Screening? 08/22/2024 Information not available 08/22/2024 How Much Tobacco Do You Smoke? No [email or web address] Information not available 06/08/2016 Do You Use Any Illicit Or Recreational Drugs? No Information not available 06/08/2021 Has Tobacco Cessation Counseling Been Provided? No Information not available 06/08/2021 Do You Or Have You Ever Used Any Other Forms Of Tobacco Or Nicotine? No Information not available 03/18/2022 Sex: Female Functional Status None recorded. Mental Status None recorded. Family History Relationship Description Onset Age of this Age Resolved Age Notes LastModified by Organization Details LastModified Time Father Asthma [email or web address] Not available 05/11/2016 17:03:30 Maternal Grandmother Malignant tumor of breast [email or web address] Not available 17:12:52 Maternal Grandfather Malignant tumor of lung [email or web address] Not available 17:13:38 Paternal Grandfather Malignant neoplastic disease [email or web address] Not available 17:13:50 Medical History Condition Response Coronary Artery Disease N Other N Atrial Fibrillation N High Blood Pressure N Thyroid Problems N Kidney or Bladder Problems N GI Problems N Depression N COPD N Blood Clots N Have you had a mammogram in the last yea r? N Eating Disorder N Skin Problems N Anemia N Heart Attack ([place]) N Anxiety Disorder N Diabetes N Muscle, Joint, or Bone Problems N Arthritis N Seizures/Epilepsy Y Have you had a colonoscopy in the last 1 0 years? N Acid Reflux (GERD) N Cancer N Stroke N Asthma Y Allergies Y Have you had a PSA blood test in the las t year? N ADHD N Substance Abuse N High Cholesterol N Hepatitis N Liver Disease N Schizophrenia N Headaches N Heart Failure N Osteoporosis N Gynecological History Statement/Question Response Menses Monthly Y Date of LMP 06/20/2024 On BCP's at Conception? N Obstetrics History GPAL:G 1 P 0 0 0 1 Type Value Living 1 Total 1 Immunizations Vaccine Type Date Status Note Provider Nam e and Address Organization Details Recorded Time Hib, unspecified formulation 7 completed Not Available [facility] 08/11/2023 18:58:07 MMR 8 completed [facility] 08/11/2023 18:58:07 MMR 4 completed Not Available [facility] 08/11/2023 18:58:07 Tdap 9 completed Not Available [facility] 08/11/2023 18:58:07 DTP 3 completed Not Available [facility] 08/11/2023 18:58:07 DTP 3 completed Not Available [facility] 08/11/2023 18:58:07 DTP 4 completed Not Available [facility] 08/11/2023 18:58:07 DTP 2 completed Not Available [facility] 08/11/2023 18:58:07 OPV 3 completed Not Available [facility] 08/11/2023 18:58:07 OPV 4 completed Not Available [facility] 08/11/2023 18:58:07 OPV 7 completed Not Available [facility] 08/11/2023 18:58:07 OPV 2 completed Not Available [facility] 08/11/2023 18:58:07 Hep B, adolescent or pediatric 8 completed Not Available [facility] 08/11/2023 18:58:07 Hep B, adolescent or pediatric 7 completed Not Available [facility] 08/11/2023 18:58:07 Hep B, adolescent or pediatric 7 completed Not Available [facility] 08/11/2023 18:58:07 DTaP 7 completed Not Available [facility] 08/11/2023 18:58:07 Influenza, split virus, trivalent, preservative 1 completed Not Available [facility] 08/11/2023 18:58:07 Past Encounters Encounter ID Performer Location Encounter Start Date Encounter Closed Date Diagnosis/Indication Diagnosis SNOMED-CT Code Diagnosis ICD10 Code Diagnosis Note [id number] [facility] [address] [place] [address] 05/11/2016 16:35:26 05/15/2016 22:34:29 Viral gastroenteritis 161771426 A08.4 resolved, gave note to radha Jimenes [id number] [facility] [address] [place] [address] 06/08/2016 10:02:31 06/10/2016 13:41:02 Acute asthma 109683010 J45.901 Discussed starting maintenanc e inhaler like flovent if symptoms recur before end of winter, no use seasonally for prevention . Flovent, Pulmicort. Will call with any recurrence [id number] Melodie Gannon MD [facility] [address] [place] [address] 06/27/2016 11:55:54 06/29/2016 12:06:51 Intermittent asthma uncontrolled 0062662959 102 J45.20 advised FLu shot and pneumonia vaccine and refused. We reviewed the CXR. today. Stay away from your boyfriend who smokes. Have allergy testing since you may have developed a problem with dogs or other inhalant allergens and will need to avoid them. you decline RAST today. [id number] Luma De La Garza grzegorz [place] [id number] [facility] [address] [place] [address] 10/19/2016 17:00:47 10/20/2016 12:13:40 Gynecologic examination 47389434 Z01.411 obesity and clear discharge discussed Uses oral contraception 3466993 Z79.3 [id number] Luma lantigua [facility] [address] [place] [address] 01/06/2017 11:12:40 01/09/2017 10:27:40 Asthma 321368005 J45.909 asthma plan discussed. New start combo MDI-- failed inhaled corticoste roid alone Contracept ion care management 924151240 Z30.9 discusssed using PNV once staopping OCs and to advise 3 month wait until trying to get [id number] Melodie Gannon MD [facility] [address] [place] [address] 02/12/2018 12:39:47 02/13/2018 10:14:46 Asthma 937845184 J45.909 asthma plan discussed. COnt the ADVAIR-- rinse well after dosing [id number] Melodie Gannon MD [facility] [address] [place] [address] 03/07/2018 16:22:00 03/08/2018 10:36:49 Amenorrhea 10869217 N91.2 probable - - will check wit serum and start vitamins Asthma 646271569 J45.90 9 asthma plan discussed. Change to symbicort for safety- rinse mouth well after dosing. OK for proair for rescue inhaler as needed. Coupon for SYMBICORT given [id number] Melodie Gannon MD [facility] [address] [place] [address] 04/18/2019 12:20:07 04/18/2019 13:04:38 Asthma 982485144 J45.909 asthma plan discussed. Asthma control test (ACT) was a 16 and guidelines recommend scores below 19 are not as well controlled as they should beWe will increase the symbicort to 160 mcg-4.5mcg HFA aerosol Patient hasn't been using nebulizer Low back pain 489997437 M54.5 pt ed and trial of HEP and call if not better after a few weeks-- you will also attempt weight loss this will help with pat low back pain. I see no evidence that the EPIDURAL had any complicati ons causing your pain Influenza vaccination declined 351782002 Z28.21 [id number] Melodie Gannon MD [facility] [address] [place] [address] 06/23/2020 13:36:50 06/24/2020 08:52:41 Asthma [id number] J45.909 asthma plan discussed. Asthma control test (ACT) was a 16 and guidelines recommend scores below 19 are not as well controlled as they should beWe will add SINGULAIR and continue the symbicort to 160 mcg-4.5mcg HFA aerosol Patient will use the rescue inhaler as needed [id number] Melodie Gannon MD Formerly [facility] [address] [place] [address] 06/08/2021 09:36:48 06/08/2021 15:14:00 Asthma [id number] J45.909 asthma plan discussed. Asthma control test (ACT) was a 17 and guidelines recommend scores below 19 are not as well controlled as they should beWe will continue montelukas t and symbicort to 160 mcg-4.5mcg HFA aerosol and add spiriva.Jorge petit will use the rescue inhaler as neededshe will call if control is not better-- for referral to professor of english Vaccine de clined by patient [id number] 02 Z28.29 [id number] JORGE Garcia Formerly [facility] [address] [place] [address] 03/18/2022 11:13:27 03/21/2022 09:36:00 Cough [id number] R05.9 Serous otitis media [id number] 7007 H65.90 Spent time educating on allergic rhinitis including symptoms and treatment. Symptoms include: watery, running nose and post nasal drip causing sore throat or cough. Discussed the importance of taking a daily allergy medication or using daily nasal spray in the spring time to prevent sinus congestion build up. May use saline rinses to linoleum layer helper congestion symptoms. Asthma [id number] J45.90 9 Acute otitis media 89058 03 H66.92 TM erythemato us and slightly bulging. Will treat with abx therapy and steroid pack for inner ear fluid of right ear. [id number] Melodie Gannon MD Formerly [facility] [address] [place] [address] 04/18/2023 15:13:24 04/19/2023 11:02:58 Adult health examination [id number] Z00.00 declined all vaccines advised-- FLu /Covid/ Prevnar 20 Moderate p ersistent asthma 193852027 J45.40 change symbicort/ spiriva to TRELEGY-- this one inhaler is to take the place of Symbicort and Spiriva if covered --Cont to use rescue inhaler as directed Body mass index 40+ - severely obese 770058314 Z68.41 set goal for 10 % bdy weight weight loss-- eating real food and avoiding empty calories [id number] JORGE Garcia [facility] [address] [place] [address] 09/07/2023 10:44:08 09/07/2023 15:41:32 Acute upper respiratory infection 12797662 J06.9 Get plenty of rest, push fluids, vaporizer, saline nasal spray, robitussin for cough prn, tylenol for HERRERA prn, call back if persistent colored nasal drainage or sputum, fevers, sinus pain, SOB. Obesity 087927630 E66.9 We had a lengthy conversati on about the risks and benefits of using phentermin e for weight loss. I specifical ly emphasized the cardiovasc ular risks of the medication . I informed pt that this medication can be used no longer than three-six months per year, and that she will have to return monthly to ensure vitals are WNL. Pt instructed on healthy, low carb diet and to exercise most days of the week with at least moderate intensity for at least 30-60 minutes. She expressed understand ing and agreed to this treatment plan. Before prescribin g controlled substances , I checked [place] [employer] and found no inappropri ate prescripti ons for this patient Acute left otitis media 366078941 H66.92 Given erythema of left TM will give abx therapyDo not take any over the counter drops or put anything into the earI recommend adding allergy medication such as zyrtec or claritin for allergic relief as well Asthma 570581421 J45.90 9 States marguerite has been working great [id number] Melodie Gannon MD Formerly [facility] [address] [place] [address] 10/17/2023 10:31:45 10/18/2023 10:51:46 Morbid obesity 283620648 E66.01 We agreed that the benefit of taking PHENTERMIN E outweighs the risk of this medication at this time-- she reports it helps with her appetite and metabolism . She understand s the importance of LIFESTYLE change and diet and exercise Asthma [id number] J45.90 9 well controlled with plan to continue TRELLEGY intermediate designer-- which had been refilled for one year in Mar-- she is advised to follow up in 6 months [id number] JORGE Garcia [facility] [address] [place] [address] 08/22/2024 10:03:06 08/22/2024 16:43:06 Asthma [id number] J45.909 Normal 4694339 2 Z34.90 Last true period 06/20/2024 putting due date sometime in March, 6-9 weeks of pregnancyC ontinue daily prenatalDe clined blood HCG confirmati on todayWill switch to fluticason e inhaler for safety and can go back to trelegy if becomes uncontroll edMay continue albuterol inhaler PRN w/ nebulizer PRN- requested new order for nebulizer machineFol low up with OBGYN in Aug as planned Health Concerns Section Related Observation LastModified by Organization Detai ls LastModified Time None Recorded Concern Status LastModified by Organization Details LastModified Time None Recorded Advance Directives Directive None Recorded Payers Encounter Date Sequence Insurance Name Policy Number Policy Harris Covered Member ID Harris Member ID Guarantor Name 03/18/2022 1 [facility] ON OR AFTER 01/21/21 (MEDICAID REPLACEMENT - HMO) Miroslava Bailey [id number] Miroslava Bailey 04/18/2023 1 [facility] ON OR AFTER 01/21/21 (MEDICAID REPLACEMENT - HMO) Miroslava Bailey [id number] Miroslava Bailey 09/07/2023 1 [facility] ON OR AFTER 01/21/21 (MEDICAID REPLACEMENT - HMO) Miroslava Bailey [id number] Miroslava Bailey 10/17/2023 1 [facility] ON OR AFTER 01/21/21 (MEDICAID REPLACEMENT - HMO) Miroslava Bailey [id number] Miroslava Bailey 08/22/2024 1 [facility] ON OR AFTER 01/21/21 (MEDICAID REPLACEMENT - HMO) Miroslava Bailey [id number] Miroslava Bailey Notes Date Note Type Note Provider Name and Address Organization Details Recorded Time 03/18/2022 text/html EaracheReported bypatient.Location:[facility] Quality:ringing only Severity:continuous; moderate Duration:started: (Last monday or monday); Monday hearing loss Timing:gradual Context:no sick contacts; no recent swimming/water in ear; no exposure to second hand smoke; no head trauma; not grinding teeth; no recent air travel; clogged ear Modifying Factors:does not hurt to lie on, or pull on ear; does not hurt to chew Associated Symptoms:no discharge from the ears; no popping noise in the ears;hearing loss(muffled);nose/sin us problems;ringing in the ears; plugs nose to relieve popping Pt has left ear pain that started 5 days ago and muffled hearing on Monday. It is constant but ear pain has improved. She used ear drops and plugs her nose but her ear still feels clogged. She has seasonal allergies but this never happened before. JORGE Garcia Attn: Accounting[address] [place], [address], [place] [facility] 03/18/2022 12:41:51 04/18/2023 text/html annual no pap Melodie Gannon MD Attn: Accounting[address] [place], [address], [place] [facility] 04/19/2023 00:30:33 09/07/2023 text/html COVID ScreeningReported bypatient.Onset/Durati on of fever:no fever Associated Symptoms:cough; no shortness of breathCOVID-19 Symptoms November 2019Reported bypatient.COVID-19 Signs and Symptomssore throat improving Quality:productive cough Severity:no pain Duration:symptoms started Monday. earache Monday Associated Symptoms:earache in the left ear Pt here for 4 days of cough, sore throat, and earache in her left ear starting 48 hours ago. Used some over the counter drops without relief. She states her runny nose and scratchy throat have improved but ear still hurts. She would also like to discuss weight loss options. JORGE Garcia Attn: Accounting[address] [facility], [place], [address], [place] [facility] 09/07/2023 11:36:15 10/17/2023 text/html Asthma F/UReport ed bypatient.Context:impr oving Modifying Factors:allergies Associated Symptoms:no fever; no fatigue; no irritability; no cough; normal appetite; no changes in productivity; no shortness of breathNotes:she reports she is very happy with use of TRELLEGY -- her asthma is well controlled.ObesityRepo rted bypatient.Diagnosis Summary:diagnosis: obesity Associated Symptoms:no depression Co-morbidities:no new co-morbidities since last visit Lifestyle changes:no changes in living situation; motivated to continue lifestyle changes; losing weight; exercising more Nutrition:doesn't follow any kind of diet plan Physical Activity:reported frequency of moderate level of physical activity per week: 2-4 days Medication Education:understands potential side effectsNotes:Patient did have side effects when first starting phentermine: dry mouth, heart racing. SHe reported that these symptoms subsided a few days after starting med. She reports she is very happy with PHENTERMINE and would like to continue to take this medication for weight loss. Melodie Gannon MD Attn: Accounting, [place], [address], [facility] 10/17/2023 20:08:45 08/22/2024 text/html pt would like to discuss safe meds that she should be takingnebulizer machinepositive test 08/18 and 08/19 JORGE Garcia Attn: Accounting, [place], [address], [place] [facility] 08/22/2024 10:54:53 OBGyn Episode Ob Episode Information Episode Created Date Number of Fetuses Patient Bloodtype Patient rh Status Prepregnancy Weight lbs Domestic Partner Domestic Partner Phone Father Name Public Relations Intern Status 04/18/20 19 1 CLOSED Fetus Data First Name Last Name Admitted to NICU Weight (g) Sex Living Outcome Pediatric Complications Fetus ID Race Codes Race Delivery Type M Full Term [id number] Vaginal Only Sampson Calculation Initial Sampson Date Initial Exam [...] Complications Tubal Sterilization Discharge Date Comments 9 no complicat ions Discharge Information Feeding Method Contraceptive Method Maternal HG B and HCT Levels
== END 2024-09-11 13:50 | disposition home or self-care (01) ==
LOC: ANHLAB 13:52
PROVIDERS: Visit Provider Advanced Practice Midwife
DX: O20.0 Threatened abortion (principal); Z3A.00 Weeks of gestation of pregnancy not specified
CPT/HCPCS: 36415; 84702

== ENCOUNTER 2024-09-13 08:08 | Outpatient (CLI) | payer OTHER, SELFPAY ==
--- OUTSIDE RECORDS SUMMARY | 2024-09-13 08:20 | XMS_ITS | Clinical Summary ---
Author Organization [facility] Address [address] [place] [address] Care Team Providers Care Home Service Technician Name Role Phone Unavailable Primary Care Provider [...]
--- OUTSIDE RECORDS SUMMARY | 2024-09-13 08:20 | XMS_ITS | Data Portability ---
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 Plan of Treatment Reminders Order Date Submit Date Provider Last Modified By Organization Details Last Modified Time Details Appointments None recorded. Lab influenza virus A + B + SARS-CoV-2 (COVID19) Ag panel, rapid IA, upper respiratory specimen 2023 024 In-Office Order, Internal Use Only DO Not Attach Compendium DO Not Attach Compendium, Do Not Delete/merge, [id number] 4 11:17:00 rapid SARS CoV 2 Ag, QL IA, respiratory specimen 2021 022 In-Office Order, Internal Use Only DO Not Attach Compendium DO Not Attach Compendium, Do Not Delete/merge, [id number] 2 12:20:53 Referral None recorded. Procedures None recorded. Surgeries None recorded. Imaging None recorded. Medication Orders fluticasone propionate 110 mcg/actuati on HFA aerosol inhaler 2024 025 [facility]15338, [address], [place], [id number], 5 10:45:06 phentermine 37.5 mg tablet 2023 024 [facility]04742, [address], [place], [id number], 5 10:14:51 phentermine 37.5 mg tablet 2023 024 [facility]27099, [address], [place], [id number], 5 10:14:51 amoxicillin 875 mg-potassiu m clavulanate 125 mg tablet 2023 024 charrisal 1 [facility] #57147, [address], [place], [id number], 4 10:38:52 Trelegy Ellipta 200 mcg-62.5 mcg-25 mcg powder for inhalation 2022 023 [email or web address] [facility] #76800, [address], [place], [id number], 5 10:38:58 albuterol sulfate HFA 90 mcg/actuati on aerosol inhaler 2022 023 [facility] #02309, [address], [place], [id number], 3 00:30:17 montelukast 10 mg tablet 2022 023 [facility] #48740, [address], [place], [id number], 5 10:14:48 albuterol sulfate 2.5 mg/3 mL (0.083 %) solution for nebulizatio n 2022 023 [facility] #48532, [address], [place], [id number], 3 00:30:18 Spiriva with HandiHaler 18 mcg and inhalation capsules 2021 [email or web address], [address], [place], [id number], 3 00:27:20 Symbicort 160 mcg-4.5 mcg/actuati on HFA aerosol inhaler 2021 [facility], [address], [place], [id number], 3 00:27:26 albuterol sulfate HFA 90 mcg/actuati on aerosol inhaler 2021 [email or web address], [address], [place], [id number], 3 14:06:20 amoxicillin 875 mg-potassiu m clavulanate 125 mg tablet 2021 [email or web address] 1 [facility] #02602, [address], [place], [id number], 4 10:38:52 methylpredn isolone 4 mg tablets in a dose pack 2021 [facility], [address], [place], [id number], 3 14:06:11 fluticasone propionate 50 mcg/actuati on nasal spray,suspe nsion 2021 [facility], [address], [place], [id number], 3 14:06:36 Patient TargetsNo targets recorded. Patient Instructions Encounter Date Encounter Id Patient Instructions Last Modified By Organization Details Last Modified Time 09/07/2023 [id number] A healthy lifestyle: care instructions Not available [...] started. [email or web address] Not available 09/07/2023 10:21:01 08/22/2024 [id number] nutrition during : care instructions Not available [...] DO Not Attach Compendium, Do Not Delete/merge, [id number] 03/18/2022 11:38:51 09/07/19 24 09/07/2023 influ kenney virus A + B + SARS- CoV-2 (COVI D19) Ag panel , rapid IA, upper respi rator y speci men Flu A negati ve Not Available In-Office Order Internal Use Only DO Not Attach Compendium DO Not Attach Compendium, Do Not Delete/merge, [id number] 09/07/2023 10:21:18 09/07/19 24 09/07/2023 influ kenney virus A + B + SARS- CoV-2 (COVI D19) Ag panel , rapid IA, upper respi rator y speci men Flu B negati ve Not Available In-Office Order Internal Use Only DO Not Attach Compendium DO Not Attach Compendium, Do Not Delete/merge, [id number] 09/07/2023 10:21:18 09/07/19 24 09/07/2023 influ kenney virus A + B + SARS- CoV-2 (COVI D19) Ag panel , rapid IA, upper respi rator y speci men Rapid SARS CoV 2 Ag, QL IA, respiratory specimen negati ve Not Available In-Office Order Internal Use Only DO Not Attach Compendium DO Not Attach Compendium, Do Not Delete/merge, [id number] 09/07/2023 10:21:18 Result Notes None recorded. Problems Name Problem SNOMED Code Status Onset Date Resolution Date Notes Provider Name and Address Organization Details Recorded Time - on history 169614930 Completed 201704/18/2019 Melodie Gannon MD Attn: Accounting ,[address] [place], [address] , [facility] 9 12:43:20 Morbid obesity 359807272 Active Not Available [facility] 4 18:58:07 Asthma 930043653 Active Not Available [facility] 4 18:58:07 Seizure 44391362 Active Not Available [facility] 4 18:58:07 Intermit tent asthma uncontro lled 19601927012 02 Completed 201503/07/2018 Melodie Gannon MD Attn: Accounting ,[address] [place], [address] , [facility] 8 18:34:31 Elevated blood-pr essure reading without diagnosi s of hyperten perfecto 856666267 Completed 201103/03/2012 Location : None;Sev erity: Moderate ;Progres s: Stable;A dded By: Melodie Gannon;Add to Current Problems : NO Not Available [facility] 7 08:36:52 Family planning surveill ance Completed 201103/03/2012 Location : None;Sev erity: Moderate ;Progres s: Stable;A dded By: Melodie Gannon;Add to Current Problems : NO Not Available [facility] 7 08:36:52 Ganglion of joint 83968907 Completed 201305/18/2014 Location : None;Sev erity: Moderate ;Progres s: Stable;A dded By: Melodie Gannon;Add to Current Problems : YES Not Available [facility] 7 08:36:52 Asthma 508433169 Completed 201105/01/2015 Location : None;Sev erity: Moderate ;Progres s: Stable;A dded By: Melodie Gannon;Add to Current Problems : YES Melodie Gannon MD Attn: Accounting ,[address] [place], [address] , [facility] 3 08:39:28 Generali zed abdomina l pain 136399544 Completed 201104/29/2012 Location : None;Sev erity: Moderate ;Progres s: Stable;A dded By: Niki Pelletier;Add to Current Problems : NO Not Available [facility] 7 08:36:52 Nausea and vomiting 63638417 Completed 201209/16/2012 Location : None;Sev erity: Moderate ;Progres s: Stable;A dded By: Niki Pelletier;Add to Current Problems : NO Not Available [facility] 7 08:36:52 IgE-medi ated allergic asthma 786789543 Completed 201403/07/2018 Location : None;Sev erity: Moderate ;Progres s: Stable;A dded By: Haylie Sandra;Add to Current Problems : YES Melodie Gannon MD Attn: Accounting ,[address] [place], [address] , [facility] 8 18:34:34 Problem Notes None recorded. Procedures Surgical History Date Name Laterality Status Provider Name and Address Organization Details Recorded Time 015 Tonsillectomy completed [facility] 01/06/2017 17:13:08 015 Removal of adenoids completed [facility] 01/06/2017 17:13:20 013 Cholecystectomy completed [facility] 01/05/2017 13:10:22 Imaging Results None recorded. Procedure Notes None recorded. Medical Equipment None Reported. Allergies No known drug allergies Medications Name Sig Start Date Stop Date Status Note LastModified by Organization Details LastModified Time advair hfa 45-21 mcg/act aero 03/07 completed Not Available Not Available Not Available proair hfa 108 (90 base) mcg/act aers 02/12 completed Not Available Not Available Not Available albuterol sulfate (2.5 mg/3ml) 0.083% nebu 02/12 completed Not Available Not Available Not Available tri-estaryl la 0.18/0.215/ 0.25 mg-35mcg tabs 02/12 [...] to 6 hr 10/15 completed RxNor m: [id number] 7;All ow Subst ituti on: True Not [...] well after use 05/28 completed RxNor m: [id number] 48;Al low Subst ituti on: True Not Available Not Available Not Available ProAir RespiClick 90 mcg/actuati on breath activated Inhale 2 puff(s) by mouth q 4 to 6 hr 10/19 completed RxNor m: 89205 61;Al low Subst ituti on: True Not [...] Updated DateTime 2 170.18 cm 41.5 kg/m2 558648. 98 g 97.3 [degF] 98 % 98 % 100 /min 120 mm[Hg] 82 mm[Hg] Chrissy Nuno MA [facility] 2 11:36:39 Date Recorded Body weight Body mass index (BMI) Body height Body temperature Oxygen saturation Oxygen saturation in Arterial blood by Pulse oximetry Heart rate Systolic blood pressure Diastolic blood pressure Provider Name and Address Organization Details Last Updated DateTime 3 613579. 23 g 44.5 kg/m2 170.18 cm 97.1 [degF] 98 % 98 % 76 /min 122 mm[Hg] 70 mm[Hg] Marcelino Taylor MA [facility] 3 15:43:19 Date Recorded Body height Body mass index (BMI) Body weight Body temperature Heart rate Oxygen saturation Oxygen saturation in Arterial blood by Pulse oximetry Systolic blood pressure Diastolic blood pressure Provider Name and Address Organization Details Last Updated DateTime 4 170.18 cm 45.4 kg/m2 829189. 79 g 97.3 [degF] 79 /min 99 % 99 % 129 mm[Hg] 75 mm[Hg] Pia Garcia MA [facility] 4 11:16:03 Date Recorded Body height Body mass index (BMI) Body weight Body temperature Heart rate Oxygen saturation Oxygen saturation in Arterial blood by Pulse oximetry Systolic blood pressure Diastolic blood pressure Provider Name and Address Organization Details Last Updated DateTime 4 170.18 cm 44.9 kg/m2 941035. 29 g 97.9 [degF] 102 /min 98 % 98 % 124 mm[Hg] 81 mm[Hg] Haylie Sandra MA [facility] 4 10:45:14 Date Recorded Body height Body temperature Oxygen saturation Oxygen saturation in Arterial blood by Pulse oximetry Heart rate Systolic blood pressure Diastolic blood pressure Provider Name and Address Organization Details Last Updated DateTime 5 170.18 cm 97.3 [degF] 99 % 99 % 72 /min 114 mm[Hg] 73 mm[Hg] Pia Garcia MA [facility] 5 10:18:54 Date Recorded Body mass index (BMI) Body weight Provider Name and Address Organization Details Last Updated DateTime 08/22/2024 40.7 kg/m2 127493.02 g JORGE Garcia Attn: Accounting,[address] [place], [address], [facility] 08/22/2024 10:51:40 Social History Question Answer Notes LastModified by Organizat ion Details LastModified Time Tobacco Smoking Status Never Smoker Haylie gibson [facility] 05/11/2016 17:03:42 What Is Your Level Of [...] Response Coronary Artery Disease N Other N High Blood Pressure N Atrial Fibrillation N Kidney or Bladder Problems N Thyroid Problems N GI Problems N Depression N COPD N Blood Clots N Have you had a mammogram in the last yea r? N Skin Problems N Eating Disorder N Anemia N Heart Attack (DE) N Anxiety Disorder N Diabetes N Muscle, [...] Liver Disease N Schizophrenia N Headaches N Osteoporosis N Heart Failure N Gynecological History Statement/Question Response Menses Monthly Y Date of LMP 06/20/2024 On BCP's at Conception? N Obstetrics History GPAL:G 1 P 0 0 0 1 Type Value Living 1 Total 1 Immunizations Vaccine Type Date Status Note Provider Nam e and Address Organization Details Recorded Time Hib, unspecified formulation 7 completed Not Available [facility] 08/11/2023 18:58:07 MMR 8 completed Not Available [facility] 08/11/2023 18:58:07 MMR 4 completed Not Available [facility] 08/11/2023 18:58:07 Tdap 9 completed Not Available [facility] 08/11/2023 18:58:07 DTP 3 completed Not Available [facility] 08/11/2023 18:58:07 DTP 3 completed Not Available [facility] 08/11/2023 18:58:07 DTP 4 completed Not Available [facility] 08/11/2023 18:58:07 DTP 2 completed Not Available [facility] 08/11/2023 18:58:07 OPV 3 completed Not Available [facility] 08/11/2023 18:58:07 OPV 4 completed Not Available [facility] 08/11/2023 18:58:07 OPV 7 completed Not Available [facility] 08/11/2023 18:58:07 OPV 2 completed Not Available [facility] 08/11/2023 18:58:07 Hep B, adolescent or pediatric 8 completed Not Available [facility] 08/11/2023 18:58:07 Hep B, adolescent or pediatric 7 completed Not Available [facility] 08/11/2023 18:58:07 Hep B, adolescent or pediatric 7 completed Not Available [facility] 08/11/2023 18:58:07 DTaP 7 completed Not Available [facility] 08/11/2023 18:58:07 Influenza, split virus, trivalent, preservative 1 completed Not Available [facility] 08/11/2023 18:58:07 Past Encounters Encounter ID Performer Location Encounter Start Date Encounter Closed Date Diagnosis/Indication Diagnosis SNOMED-CT Code Diagnosis ICD10 Code Diagnosis Note [id number] [facility] [address] [place] [address] 05/11/2016 16:35:26 05/15/2016 22:34:29 Viral gastroenteritis 187301253 A08.4 resolved, gave note to radha Jimenes [id number] [facility] [address] [place] [address] 06/08/2016 10:02:31 06/10/2016 13:41:02 Acute asthma 667126902 J45.901 Discussed starting maintenanc e inhaler like flovent if symptoms recur before end of winter, no use seasonally for prevention . Flovent, Pulmicort. Will call with any recurrence [id number] Melodie Gannon MD [facility] [address] [place] [address] 06/27/2016 11:55:54 06/29/2016 12:06:51 Intermittent asthma uncontrolled 8978666346 102 J45.20 advised FLu shot and pneumonia vaccine and refused. We reviewed the CXR. today. Stay away from your boyfriend who smokes. Have allergy testing since you may have developed a problem with dogs or other inhalant allergens and will need to avoid them. you decline RAST today. [id number] Luma De La Garza grzegorz [place] [id number] [facility] [address] [place] [address] 10/19/2016 17:00:47 10/20/2016 12:13:40 Gynecologic examination 33357685 Z01.411 obesity and clear discharge discussed Uses oral contraception 9357017 Z79.3 [id number] Luma lantigua [facility] [address] [place] [address] 01/06/2017 11:12:40 01/09/2017 10:27:40 Asthma 783710223 J45.909 asthma plan discussed. New start combo MDI-- failed inhaled corticoste roid alone Contracept ion care management 552443208 Z30.9 discusssed using PNV once staopping OCs and to advise 3 month wait until trying to get [id number] Melodie Gannon MD [facility] [address] [place] [address] 02/12/2018 12:39:47 02/13/2018 10:14:46 Asthma 495166876 J45.909 asthma plan discussed. COnt the ADVAIR-- rinse well after dosing [id number] Melodie Gannon MD [facility] [address] [place] [address] 03/07/2018 16:22:00 03/08/2018 10:36:49 Amenorrhea 03569572 N91.2 probable - - will check wit serum and start vitamins Asthma 359563131 J45.90 9 asthma plan discussed. Change to symbicort for safety- rinse mouth well after dosing. OK for proair for rescue inhaler as needed. Coupon for SYMBICORT given [id number] Melodie Gannon MD [facility] [address] [place] [address] 04/18/2019 12:20:07 04/18/2019 13:04:38 Asthma 952742351 J45.909 asthma plan discussed. Asthma control test (ACT) was a 16 and guidelines recommend scores below 19 are not as well controlled as they should beWe will increase the symbicort to 160 mcg-4.5mcg HFA aerosol Patient hasn't been using nebulizer Low back pain 681269580 M54.5 pt ed and trial of HEP and call if not better after a few weeks-- you will also attempt weight loss this will help with pat low back pain. I see no evidence that the EPIDURAL had any complicati ons causing your pain Influenza vaccination declined 059322295 Z28.21 [id number] Melodie Gannon MD [facility] [address] [place] [address] 06/23/2020 13:36:50 06/24/2020 08:52:41 Asthma 278542044 J45.909 asthma plan discussed. Asthma control test (ACT) was a 16 and guidelines recommend scores below 19 are not as well controlled as they should beWe will add SINGULAIR and continue the symbicort to 160 mcg-4.5mcg HFA aerosol Patient will use the rescue inhaler as needed [id number] Melodie Gannon MD [facility] [address] [place] [address] 06/08/2021 09:36:48 06/08/2021 15:14:00 Asthma 287473449 J45.909 asthma plan discussed. Asthma control test (ACT) was a 17 and guidelines recommend scores below 19 are not as well controlled as they should beWe will continue montelukas t and symbicort to 160 mcg-4.5mcg HFA aerosol and add spiriva.Jorge petit will use the rescue inhaler as neededshe will call if control is not better-- for referral to director of blood Vaccine de clined by patient 0742933529 02 Z28.29 [id number] JORGE Garcia [facility] [address] [place] [address] 03/18/2022 11:13:27 03/21/2022 09:36:00 Cough 63303264 R05.9 Serous otitis media 8032 7007 H65.90 Spent time educating on allergic rhinitis including symptoms and treatment. Symptoms include: watery, running nose and post nasal drip causing sore throat or cough. Discussed the importance of taking a daily allergy medication or using daily nasal spray in the spring time to prevent sinus congestion build up. 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 Asthma 205618060 J45.90 9 Acute otitis media 80992 03 H66.92 TM erythemato us and slightly bulging. Will treat with abx therapy and steroid pack for inner ear fluid of right ear. [id number] Melodie Gannon MD [facility] [address] [place] [address] 04/18/2023 15:13:24 04/19/2023 11:02:58 Adult health examination 304556594 Z00.00 declined all vaccines advised-- FLu /Covid/ Prevnar 20 Moderate p ersistent asthma 780839651 J45.40 change symbicort/ spiriva to TRELEGY-- this one inhaler is to take the place of Symbicort and Spiriva if covered --Cont to use rescue inhaler as directed Body mass index 40+ - severely obese 968283191 Z68.41 set goal for 10 % bdy weight weight loss-- eating real food and avoiding empty calories [id number] JORGE Garcia [facility] [address] [place] [address] 09/07/2023 10:44:08 09/07/2023 15:41:32 Acute upper respiratory infection 83517382 J06.9 Get plenty of rest, push fluids, vaporizer, saline nasal spray, robitussin for cough prn, tylenol for HERRERA prn, call back if persistent colored nasal drainage or sputum, fevers, sinus pain, SOB. Obesity 397760466 E66.9 We had a lengthy conversati on [...] g controlled substances , I checked [place] and found no inappropri ate prescripti ons for this patient Acute left otitis media 990409723 H66.92 Given erythema of left TM will give abx therapyDo not take any over the counter drops or put anything into the earI recommend adding allergy medication such as zyrtec or claritin for allergic relief as well Asthma 365376040 J45.90 9 States marguerite has been working great [id number] Melodie Gannon MD [facility] [address] [place] [address] 10/17/2023 10:31:45 10/18/2023 10:51:46 Morbid obesity 210324568 E66.01 We agreed that the benefit of taking PHENTERMIN E outweighs the risk of this medication at this time-- she reports it helps with her appetite and metabolism . 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-- which had been refilled for one year in Mar-- she is advised to follow up in 6 months [id number] JORGE Garcia [facility] [address] [place] [address] 08/22/2024 10:03:06 08/22/2024 16:43:06 Asthma 078630917 J45.909 Normal 5587857 2 Z34.90 Last true period 06/20/2024 putting [...] Harris Member ID Guarantor Name 03/18/2022 1 [facility] ON OR AFTER 01/21/21 (MEDICAID REPLACEMENT - HMO) Miroslava Bailey [id number] Miroslava Bailey 04/18/2023 1 [facility] ON OR AFTER 01/21/21 (MEDICAID REPLACEMENT - HMO) Miroslava Bailye [id number] Miroslava Bailey 09/07/2023 1 [facility] ON OR AFTER 01/21/21 (MEDICAID REPLACEMENT - HMO) Miroslava Bailey [id number] Miroslava Bailey 10/17/2023 1 [facility] ON OR AFTER 01/21/21 (MEDICAID REPLACEMENT - HMO) Miroslava Bailey [id number] Miroslava Bailey 08/22/2024 1 [facility] ON OR AFTER 01/21/21 (MEDICAID REPLACEMENT - HMO) Miroslava Bailey [id number] Miroslava Bailey Notes Date Note Type Note Provider Name and Address Organization Details Recorded Time 03/18/2022 text/html [facility]acheRep[facility] Quality:ringing only Severity:continuous; moderate Duration:started: (Last monday [...] happened before. JORGE Garcia Attn: Accounting,[address] [place], [address], [place] [facility] 03/18/2022 12:41:51 04/18/2023 text/html annual no pap Melodie Gannon MD Attn: Accounting,[address] [place], [address], [place] [facility] 04/19/2023 00:30:33 09/07/2023 text/html [...] loss options. JORGE Garcia Attn: Accounting,[address] [facility], [place], [address], [place] [facility] 09/07/2023 11:36:15 10/17/2023 text/html [...] weight loss. Melodie Gannon MD Attn: Accounting, [place], [address], [facility] 10/17/2023 20:08:45 08/22/2024 text/html pt would like to discuss safe meds that she should be takingnebulizer machinepositive test 08/18 and 08/19 JORGE Garcia Attn: Accounting, [place], [address], [place] [facility] 08/22/2024 10:54:53 OBGyn Episode Ob Episode Information Episode Created Date Number of Fetuses Patient Bloodtype Patient rh Status Prepregnancy Weight lbs Domestic Partner Domestic Partner Phone Father Name Dog Or Animal Sitter Status 04/18/20 19 1 CLOSED Fetus Data First Name Last Name Admitted to NICU Weight (g) Sex Living Outcome Pediatric Complications Fetus ID Race Codes Race Delivery Type M Full Term [id number] Vaginal Only Sampson Calculation Initial Sampson Date [...]
--- OUTSIDE RECORDS SUMMARY | 2024-09-13 08:20 | XMS_ITS | Encounter Summary ---
Author Organization [facility] Address [address] [place] [address] Care Team Providers Care Bag Printer Name Role Phone Unavailable Primary Care Provider Unavailabl e Prior Encounters Date Type Department Care Team Description 02/02/2022 9:30 AM CDT Office Visit [facility] [address] [place] [address] Xavi Peoples DDS Last Filed Vital Signs [...]
== END 2024-09-13 08:09 | disposition home or self-care (01) ==
PROVIDERS: PCP Family Medicine; Visit Provider Advanced Practice Midwife
DX: O20.0 Threatened abortion (principal)
CPT/HCPCS: 36415; 84702

== ENCOUNTER 2024-09-17 00:55 | Day surgery (SDC) | payer OTHER, SELFPAY ==
[2024-09-16 10:08] VITALS: BMI 42.7
--- NOTE | 2024-09-16 10:09 | PC.NURSE ---
Report to the Outpatient Waiting Room, entrance under the green pavilion located off [facility], at time _1100_ on date _09-17-24_. Planned Procedure Time: _1pm_.? Time changes happen often and if your time is changed the preop area will call you the afternoon before. - You and your visitor will be asked to self-screen and do not enter if you have any COVID symptoms. Please call surgeon if you need to reschedule. - A mask is optional within the hospital at this time. Patients may have clear liquids (water, carbonated beverages, clear teas, apple juice) until 3 hours prior to surgery with a maximum of 20 ounces. - No food from midnight until time of surgery and no smoking, or chewing tobacco (or any form of nicotine). No chewing gum, candy or mints. Take only the following medications with a SIP of water on the morning of surgery: ___Inhalers____ DO NOT STOP ANY OF YOUR OTHER PRESCRIPTION MEDICATIONS PRIOR TO SURGERY EXCEPT THE FOLLOWING Hold all vitamins and supplements for 3 days per anesthesiologist. Medications to discontinue per physician __None____ Date to take last dose Please no make-up, nail english, hairspray, perfume, deodorant, or body powder the day of surgery.? No jewelry (including any body piercings) or valuables the day of surgery, leave them at home.? Please take a shower or bath the night before, or the morning of, surgery with an antibacterial soap.? Wear comfortable, loose fitting clothing. - Jewelry must be removed prior to entering the operating room.? Rings and piercings that are not removed may be cut off. - The hospital will not accept responsibility for valuables.? - Please leave all valuables, including medications, at home the day of surgery. If you are going home after surgery, a licensed petrol tanker driver must drive you home.? - NO public transportation without another adult if you receive anesthesia. - We recommend that an adult stay with you for 24 hours following discharge. - We also recommend that you do not drive, make important decision, drink alcoholic beverages, or take any drugs that were not prescribed by your health care provider for at least 24 hours after your discharge time. Follow any additional instructions given to you from your surgeon. Telephone instructions given to _Miroslava__and asked if any additional questions and then verbalized understanding. Patient advised to call surgeon office or pre surgery nurse liaison [phone] if any additional questions.
--- OUTSIDE RECORDS SUMMARY | 2024-09-17 00:57 | XMS_ITS | Data Portability ---
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 Plan of Treatment Reminders Order Date Submit Date Provider Last Modified By Organization Details Last Modified Time Details Appointments None recorded. Lab influenza virus A + B + SARS-CoV-2 (COVID19) Ag panel, rapid IA, upper respiratory specimen 2023 024 In-Office Order, Internal Use Only DO Not Attach Compendium DO Not Attach Compendium, Do Not Delete/merge, [id number] 11:17:00 rapid SARS CoV 2 Ag, QL IA, respiratory specimen 2021 022 In-Office Order, Internal Use Only DO Not Attach Compendium DO Not Attach Compendium, Do Not Delete/merge, [id number] 2 12:20:53 Referral None recorded. Procedures None recorded. Surgeries None recorded. Imaging None recorded. Medication Orders fluticasone propionate 110 mcg/actuati on HFA aerosol inhaler 2024 025 [facility] #62486, [address], [place], [id number], 5 10:45:06 phentermine 37.5 mg tablet 2023 024 [facility], [address], [place], [id number], 5 10:14:51 phentermine 37.5 mg tablet 2023 024 [facility] #36366, [address], [place], [id number], 5 10:14:51 amoxicillin 875 mg-potassiu m clavulanate 125 mg tablet 2023 024 charrismo 1 [facility] #04809, [address], [place], [id number], 4 10:38:52 Trelegy Ellipta 200 mcg-62.5 mcg-25 mcg powder for inhalation 2022 023 [email or web address] [facility] #22777, [address], [place], [id number], 5 10:38:58 albuterol sulfate HFA 90 mcg/actuati on aerosol inhaler 2022 023 [facility] #07980, [address], [place], [id number], 3 00:30:17 montelukast 10 mg tablet 2022 023 [facility] #70016, [address], [place], [id number], 5 10:14:48 albuterol sulfate 2.5 mg/3 mL (0.083 %) solution for nebulizatio n 2022 023 [facility] #50996, [address], [place], [id number], 3 00:30:18 Spiriva with HandiHaler 18 mcg and inhalation capsules 2021 [email or web address], [address], [place], [id number], 3 00:27:20 Symbicort 160 mcg-4.5 mcg/actuati on HFA aerosol inhaler 2021 [facility]24[facility], [address], [place], [id number], 3 00:27:26 albuterol sulfate HFA 90 mcg/actuati on aerosol inhaler 2021 [email or web address] [facility]44571, [address], [place], [id number], 3 14:06:20 amoxicillin 875 mg-potassiu m clavulanate 125 mg tablet 2021 charrisma 1 [facility] #47982, [address], [place], [id number], 4 10:38:52 methylpredn isolone 4 mg tablets in a dose pack 2021 [facility]74873, [address], [place], [id number], 3 14:06:11 fluticasone propionate 50 mcg/actuati on nasal spray,suspe nsion 2021 [facility]72810, [address], [place], [id number], 3 14:06:36 Patient TargetsNo targets recorded. Patient Instructions Encounter Date Encounter Id Patient Instructions Last Modified By Organization Details Last Modified Time 09/07/2023 [id number] A healthy lifestyle: care instructions Not available [...] started. [email or web address] Not available 09/07/2023 10:21:01 08/22/2024 [id number] nutrition during : care instructions Not available [...] DO Not Attach Compendium, Do Not Delete/merge, [id number] 03/18/2022 11:38:51 09/07/19 24 09/07/2023 influ kenney virus A + B + SARS- CoV-2 (COVI D19) Ag panel , rapid IA, upper respi rator y speci men Flu A negati ve Not Available In-Office Order Internal Use Only DO Not Attach Compendium DO Not Attach Compendium, Do Not Delete/merge, [id number] 09/07/2023 10:21:18 09/07/19 24 09/07/2023 influ kenney virus A + B + SARS- CoV-2 (COVI D19) Ag panel , rapid IA, upper respi rator y speci men Flu B negati ve Not Available In-Office Order Internal Use Only DO Not Attach Compendium DO Not Attach Compendium, Do Not Delete/merge, [id number] 09/07/2023 10:21:18 09/07/19 24 09/07/2023 influ kenney virus A + B + SARS- CoV-2 (COVI D19) Ag panel , rapid IA, upper respi rator y speci men Rapid SARS CoV 2 Ag, QL IA, respiratory specimen negati ve Not Available In-Office Order Internal Use Only DO Not Attach Compendium DO Not Attach Compendium, Do Not Delete/merge, [id number] 09/07/2023 10:21:18 Result Notes None recorded. Problems Name Problem SNOMED Code Status Onset Date Resolution Date Notes Provider Name and Address Organization Details Recorded Time - on history 147300758 Completed 201704/18/2019 Melodie Gannon MD Attn: Accounting ,[address] [place], [address] , [facility] 9 12:43:20 Morbid obesity 960760516 Active Not Available [facility] 4 18:58:07 Asthma 012596874 Active Not Available [facility] 4 18:58:07 Seizure 26044599 Active Not Available [facility] 4 18:58:07 Intermit tent asthma uncontro lled 58074384012 02 Completed 201503/07/2018 Melodie Gannon MD Attn: Accounting ,[address] [place], [address] , [facility] 8 18:34:31 Elevated blood-pr essure reading without diagnosi s of hyperten perfecto 181681041 Completed 201103/03/2012 Location : None;Sev erity: Moderate ;Progres s: Stable;A dded By: Melodie Gannon;Add to Current Problems : NO Not Available [facility] 7 08:36:52 Family planning surveill ance Completed 201103/03/2012 Location : None;Sev erity: Moderate ;Progres s: Stable;A dded By: Melodie Gannon;Add to Current Problems : NO Not Available [facility] 7 08:36:52 Ganglion of joint 49567642 Completed 201305/18/2014 Location : None;Sev erity: Moderate ;Progres s: Stable;A dded By: Melodie Gannon;Add to Current Problems : YES Not Available [facility] 7 08:36:52 Asthma 930735700 Completed 201105/01/2015 Location : None;Sev erity: Moderate ;Progres s: Stable;A dded By: Melodie Gannon;Add to Current Problems : YES Melodie Gannon MD Attn: Accounting ,[address] [place], [address] , [facility] 3 08:39:28 Generali zed abdomina l pain 485299330 Completed 201104/29/2012 Location : None;Sev erity: Moderate ;Progres s: Stable;A dded By: Niki Pelletier;Add to Current Problems : NO Not Available [facility] 7 08:36:52 Nausea and vomiting 83881295 Completed 201209/16/2012 Location : None;Sev erity: Moderate ;Progres s: Stable;A dded By: Niki Pelletier;Add to Current Problems : NO Not Available [facility] 7 08:36:52 IgE-medi ated allergic asthma 947919787 Completed 201403/07/2018 Location : None;Sev erity: Moderate ;Progres s: Stable;A dded By: Haylie Sandra;Add to Current Problems : YES Melodie Gannon MD Attn: Accounting ,[address] [place], [address] , [facility] 8 18:34:34 Problem Notes None recorded. Procedures Surgical History Date Name Laterality Status Provider Name and Address Organization Details Recorded Time 015 Tonsillectomy completed [facility] 01/06/2017 17:13:08 015 Removal of adenoids completed [facility] 01/06/2017 17:13:20 013 Cholecystectomy completed [facility] 01/05/2017 13:10:22 Imaging Results None recorded. Procedure [...] to 6 hr 10/15 completed RxNor m: [id number] 7;All ow Subst ituti on: True Not [...] well after use 05/28 completed RxNor m: 04117 48;Al low Subst ituti on: True Not Available Not Available Not Available ProAir RespiClick 90 mcg/actuati on breath activated Inhale 2 puff(s) by mouth q 4 to 6 hr 10/19 completed RxNor m: 13986 61;Al low Subst ituti on: True Not [...] Updated DateTime 2 170.18 cm 41.5 kg/m2 060253. 98 g 97.3 [degF] 98 % 98 % 100 /min 120 mm[Hg] 82 mm[Hg] Chrissy Nuno MA [facility] 2 11:36:39 Date Recorded Body weight Body mass index (BMI) Body height Body temperature Oxygen saturation Oxygen saturation in Arterial blood by Pulse oximetry Heart rate Systolic blood pressure Diastolic blood pressure Provider Name and Address Organization Details Last Updated DateTime 3 807685. 23 g 44.5 kg/m2 170.18 cm 97.1 [degF] 98 % 98 % 76 /min 122 mm[Hg] 70 mm[Hg] Marcelino Taylor MA [facility] 3 15:43:19 Date Recorded Body height Body mass index (BMI) Body weight Body temperature Heart rate Oxygen saturation Oxygen saturation in Arterial blood by Pulse oximetry Systolic blood pressure Diastolic blood pressure Provider Name and Address Organization Details Last Updated DateTime 4 170.18 cm 45.4 kg/m2 720811. 79 g 97.3 [degF] 79 /min 99 % 99 % 129 mm[Hg] 75 mm[Hg] Pia Garcia MA [facility] 4 11:16:03 Date Recorded Body height Body mass index (BMI) Body weight Body temperature Heart rate Oxygen saturation Oxygen saturation in Arterial blood by Pulse oximetry Systolic blood pressure Diastolic blood pressure Provider Name and Address Organization Details Last Updated DateTime 4 170.18 cm 44.9 kg/m2 740649. 29 g 97.9 [degF] 102 /min 98 % 98 % 124 mm[Hg] 81 mm[Hg] Haylie Sandra MA [facility] 4 10:45:14 Date Recorded Body height Body temperature Oxygen saturation Oxygen saturation in Arterial blood by Pulse oximetry Heart rate Systolic blood pressure Diastolic blood pressure Provider Name and Address Organization Details Last Updated DateTime 5 170.18 cm 97.3 [degF] 99 % 99 % 72 /min 114 mm[Hg] 73 mm[Hg] Pia Garcia MA [facility] 5 10:18:54 Date Recorded Body mass index (BMI) Body weight Provider Name and Address Organization Details Last Updated DateTime 08/22/2024 40.7 kg/m2 397488.02 g JORGE Garcia Attn: Accounting,[address] [place], [address], [facility] 08/22/2024 10:51:40 Social History Question Answer Notes LastModified by Organizat ion Details LastModified Time Tobacco Smoking Status Never Smoker Haylie gibson [facility] 05/11/2016 17:03:42 What Is Your Level Of [...] Atrial Fibrillation N High Blood Pressure N Kidney or Bladder Problems N Thyroid Problems N GI Problems N Depression N COPD N Blood Clots N Have you had a mammogram in the last yea r? N Eating Disorder N Skin Problems N Anemia N Heart Attack ([place]) N Anxiety Disorder N Diabetes N Muscle, [...] Hib, unspecified formulation 7 completed Not Available [facility] 08[facility]23 18:58:07 MMR 8 completed Not Available [facility] 08/11/2023 18:58:07 MMR 4 completed Not Available [facility] 08/11/2023 18:58:07 Tdap 9 completed Not Available [facility] 08/11/2023 18:58:07 DTP 3 completed Not Available [facility] 08/11/2023 18:58:07 DTP 3 completed Not Available [facility] 08/11/2023 18:58:07 DTP 4 completed Not Available [facility] 08/11/2023 18:58:07 DTP 2 completed Not Available [facility] 08/11/2023 18:58:07 OPV 3 completed Not Available [facility] 08/11/2023 18:58:07 OPV 4 completed Not Available [facility] 08/11/2023 18:58:07 OPV 7 completed Not Available [facility] 08/11/2023 18:58:07 OPV 2 completed Not Available [facility] 08/11/2023 18:58:07 Hep B, adolescent or pediatric 8 completed Not Available [facility] 08/11/2023 18:58:07 Hep B, adolescent or pediatric 7 completed Not Available [facility] 08/11/2023 18:58:07 Hep B, adolescent or pediatric 7 completed Not Available [facility] 08/11/2023 18:58:07 DTaP 7 completed Not Available [facility] 08/11/2023 18:58:07 Influenza, split virus, trivalent, preservative 1 completed Not Available [facility] 08/11/2023 18:58:07 Past Encounters Encounter ID Performer Location Encounter Start Date Encounter Closed Date Diagnosis/Indication Diagnosis SNOMED-CT Code Diagnosis ICD10 Code Diagnosis Note [id number] [facility] [address] [place] [address] 05/11/2016 16:35:26 05/15/2016 22:34:29 Viral gastroenteritis 029467667 A08.4 resolved, gave note to radha Jimenes [id number] [facility] [address] [place] [address] 06/08/2016 10:02:31 06/10/2016 13:41:02 Acute asthma 119062497 J45.901 Discussed starting maintenanc e inhaler like flovent if symptoms recur before end of winter, no use seasonally for prevention . Flovent, Pulmicort. Will call with any recurrence [id number] Melodie Gannon MD [facility] [address] [place] [address] 06/27/2016 11:55:54 06/29/2016 12:06:51 Intermittent asthma uncontrolled 4847648611 102 J45.20 advised FLu shot and pneumonia vaccine and refused. We reviewed the CXR. today. Stay away from your boyfriend who smokes. Have allergy testing since you may have developed a problem with dogs or other inhalant allergens and will need to avoid them. you decline RAST today. [id number] Luma De La Garza grzegorz [place] [id number] [facility] [address] [place] [address] 10/19/2016 17:00:47 10/20/2016 12:13:40 Gynecologic examination 21827873 Z01.411 obesity and clear discharge discussed Uses oral contraception 4971887 Z79.3 [id number] Luma lantigua [facility] [address] [place] [address] 01/06/2017 11:12:40 01/09/2017 10:27:40 Asthma 233221753 J45.909 asthma plan discussed. New start combo MDI-- failed inhaled corticoste roid alone Contracept ion care management 449346152 Z30.9 discusssed using PNV once staopping OCs and to advise 3 month wait until trying to get [id number] Melodie Gannon MD [facility] [address] [place] [address] 02/12/2018 12:39:47 02/13/2018 10:14:46 Asthma 685508435 J45.909 asthma plan discussed. COnt the ADVAIR-- rinse well after dosing [id number] Melodie Gannon MD [facility] [address] [place] [address] 03/07/2018 16:22:00 03/08/2018 10:36:49 Amenorrhea 38316364 N91.2 probable - - will check wit serum and start vitamins Asthma 165911563 J45.90 9 asthma plan discussed. Change to symbicort for safety- rinse mouth well after dosing. OK for proair for rescue inhaler as needed. Coupon for SYMBICORT given [id number] Melodie Gannon MD [facility] [address] [place] [address] 04/18/2019 12:20:07 04/18/2019 13:04:38 Asthma 435591477 J45.909 asthma plan discussed. Asthma control test (ACT) was a 16 and guidelines recommend scores below 19 are not as well controlled as they should beWe will increase the symbicort to 160 mcg-4.5mcg HFA aerosol Patient hasn't been using nebulizer Low back pain 194338102 M54.5 pt ed and trial of HEP and call if not better after a few weeks-- you will also attempt weight loss this will help with pat low back pain. I see no evidence that the EPIDURAL had any complicati ons causing your pain Influenza vaccination declined 078983461 Z28.21 [id number] Melodie Gannon MD [facility] [address] [place] [address] 06/23/2020 13:36:50 06/24/2020 08:52:41 Asthma 364854093 J45.909 asthma plan discussed. Asthma control test (ACT) was a 16 and guidelines recommend scores below 19 are not as well controlled as they should beWe will add SINGULAIR and continue the symbicort to 160 mcg-4.5mcg HFA aerosol Patient will use the rescue inhaler as needed [id number] Melodie Gannon MD [facility] [address] [place] [address] 06/08/2021 09:36:48 06/08/2021 15:14:00 Asthma 256914656 J45.909 asthma plan discussed. 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 Symptoms include: watery, running nose and post nasal drip causing sore throat or cough. Discussed the importance of taking a daily allergy medication or using daily nasal spray in the spring time to prevent sinus congestion build up. 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 Asthma 999038198 J45.90 9 Acute otitis media 53680 03 H66.92 TM erythemato us and slightly bulging. Will treat with abx therapy and steroid pack for inner ear fluid of right ear. [id number] Melodie Gannon MD [facility] [address] [place] [address] 04/18/2023 15:13:24 04/19/2023 11:02:58 Adult health examination 457097078 Z00.00 declined all vaccines advised-- FLu /Covid/ Prevnar 20 Moderate p ersistent asthma 195581238 J45.40 change symbicort/ spiriva to TRELEGY-- this one inhaler is to take the place of Symbicort and Spiriva if covered --Cont to use rescue inhaler as directed Body mass index 40+ - severely obese 145294563 Z68.41 set goal for 10 % bdy weight weight loss-- eating real food and avoiding empty calories [id number] JORGE Garcia [facility] [address] [place] [address] 09/07/2023 10:44:08 09/07/2023 15:41:32 Acute upper respiratory infection 02547118 J06.9 Get plenty of rest, push fluids, vaporizer, saline nasal spray, robitussin for cough prn, tylenol for HERRERA prn, call back if persistent colored nasal drainage or sputum, fevers, sinus pain, SOB. Obesity 485723107 E66.9 We had a lengthy conversati on [...] g controlled substances , I checked [place] [employer] and found no inappropri ate prescripti ons for this patient Acute left otitis media 227495368 H66.92 Given erythema of left TM will give abx therapyDo not take any over the counter drops or put anything into the earI recommend adding allergy medication such as zyrtec or claritin for allergic relief as well Asthma 207488069 J45.90 9 States marguerite has been working great [id number] Melodie Gannon MD [facility] [address] [place] [address] 10/17/2023 10:31:45 10/18/2023 10:51:46 Morbid obesity 531047014 E66.01 We agreed that the benefit of taking PHENTERMIN E outweighs the risk of this medication at this time-- she reports it helps with her appetite and metabolism . She understand s the importance of LIFESTYLE change and diet and exercise Asthma 873930880 J45.90 9 well controlled with plan to continue TRELLEGY lobsterman-- which had been refilled for one year in Mar-- she is advised to follow up in 6 months [id number] JORGE Garcia [facility] [address] [place] [address] 08/22/2024 10:03:06 08/22/2024 16:43:06 Asthma 326693933 J45.909 Normal 8413167 2 Z34.90 Last true period 06/20/2024 putting [...] Harris Member ID Guarantor Name 03/18/2022 1 [facility] ON OR AFTER 01/21/21 (MEDICAID REPLACEMENT - HMO) Miroslava Bailey [id number] Miroslava Bailey 04/18/2023 1 [facility] ON OR AFTER 01/21/21 (MEDICAID REPLACEMENT - HMO) Miroslava Bailey [id number] Miroslava Bailey 09/07/2023 1 [facility] ON OR AFTER 01/21/21 (MEDICAID REPLACEMENT - HMO) Miroslava Bailey [id number] Miroslava Bailey 10/17/2023 1 [facility] ON OR AFTER 01/21/21 (MEDICAID REPLACEMENT - HMO) Miroslava Bailey [id number] Miroslava Bailey 08/22/2024 1 [facility] ON OR AFTER 01/21/21 (MEDICAID REPLACEMENT - HMO) Miroslava Bailey [id number] Miroslava Bailey Notes Date Note Type Note Provider Name and Address Organization Details Recorded Time 03/18/2022 text/html EaracheReported bypatient.Location:[facility] Quality:ringing only Severity:continuous; moderate Duration:started: (Last [...] happened before. JORGE Garcia Attn: Accounting,[address] [place], [address], [place] [facility] 03/18/2022 12:41:51 04/18/2023 text/html annual no pap Melodie Gannon MD Attn: Accounting,[address] [place], [address], [place] [facility] 04/19/2023 00:30:33 09/07/2023 text/html [...] options. JORGE Garcia Attn: Accounting,[address] [facility], [place], [address], [place] [facility] 09/07/2023 11:36:15 10/17/2023 text/html [...] weight loss. Melodie Gannon MD Attn: Accounting, [place], [address], [facility] 10/17/2023 20:08:45 08/22/2024 text/html pt would like to discuss safe meds that she should be takingnebulizer machinepositive test 08/18 and 08/19 JORGE Garcia Attn: Accounting, [place], [address], [place] [facility] 08/22/2024 10:54:53 OBGyn Episode Ob Episode Information Episode Created Date Number of Fetuses Patient Bloodtype Patient rh Status Prepregnancy Weight lbs Domestic Partner Domestic Partner Phone Father Name Instructional Developer Status 04/18/20 19 1 CLOSED Fetus Data First Name Last Name Admitted to NICU Weight (g) Sex Living Outcome Pediatric Complications Fetus ID Race Codes Race Delivery Type M Full Term [id number] Vaginal Only Sampson Calculation Initial Sampson Date [...]
--- OUTSIDE RECORDS SUMMARY | 2024-09-17 00:58 | XMS_ITS | Data Portability ---
Author Organization [facility] [place] Address [address] [place] [address] [place] [address] Care Team Providers Care Manager Route Name Role Phone RHIANNON GANNON Primary Care Provider [phone] Assessment No assessment recorded. Plan of Treatment Reminders Order Date Submit Date Provider Last Modified By Organization Details Last Modified Time Details Appointments SURG Suction D&C 2024 01:00P Art CAMP MD Not available Not available Not available SURG POST OP 2024 10:15A Art CAMP MD Not available Not available Not available Lab test, urine 2022 023 [facility], [address], [address], [place], [address], 05/03/2023 14:27:08 Referral None recorded. Procedures None recorded. Surgeries dilation & curettage (SURG) 2024 025 [id number] [facility], [address], [place], [address], 09/16/2024 11:03:00 Imaging US, obstetric , transvagi nal 2024 025 [email or web address] [place], [facility] [address], [place], [address], 09/11/2024 19:11:46 Medication Orders Diflucan 150 mg tablet 2023 024 [email or web address] [id number], [address], [place], [id number], 09/11/2024 12:19:23 Patient TargetsNo targets recorded. Patient Instructions Encounter Date Encounter Id Patient Instructions Last Modified By Organization Details Last Modified Time 05/03/2023 [id number] surgical trays* JUAN Not available 05/05/2024 05:01:04 Reason for Referral None Reported. Results Created Date Observation Date Name Description Value Unit Range Abnormal Flag Note LastModifiedBy Organization Detail LastModifiedTime 05/03/2005/03/2023 pregn abi test, urine HCG negati ve Not Available [place] [address], [place], [address], 05/03/2023 14:27:00 09/11/19 25 09/11/2024 US, obste tric, trans vagin al No observ ation record ed. [email or web address] [place] [address], [place], [address], 09/11/2024 13:24:12 09/11/19 25 09/11/2024 US, obste tric, trans vagin al No observ ation record ed. hortensia Sher [address], [place], [address], 09/13/2024 00:15:06 Result Notes None recorded. Procedures Surgical History Date Name Laterality Status Provider Name and Address Organization Details Recorded Time 05/03/20 Nexplanon Removal completed JUAN Hansen [address], [place], [address], [facility] 05/03/2023 14:26:13 05/15/20 Control Implant Insertion completed Betty Baker CNM [address], [place], [address], [facility] 05/15/2020 14:42:53 07/31/19 Date of Last Pap Smear completed Nevin Steele [facility] 04/27/2020 16:22:24 11/22/19 16 procedure on gallbladder completed Nevin Cedric [facility] 04/27/2020 15:09:21 07/24/19 14 Tonsillectomy completed [facility] 09/11/2024 12:56:21 07/24/19 13 extraction of wisdom tooth completed [facility] 09/11/2024 12:55:48 07/24/19 07 procedure on wrist completed [facility] 09/11/2024 12:56:10 07/24/19 05 procedure on wrist completed [facility] 09/11/2024 12:55:55 Imaging Results Imaging Date Name Status LastModified by Organization Details LastModified Time 09/11/2024 US, obstetric, transvaginal completed [email or web address] [place] [address], [place], [address], 09/11/2024 13:24:12 09/11/2024 US, obstetric, transvaginal completed hortensia Sher [address], [facility], [place], [address], 09/13/2024 00:15:06 Procedure Notes None recorded. Medical Equipment None [...] hours as needed 09/01 completed Prescrib ed Elsewher e: No Locat ion: [facility] odify By: [email or web address] Encounte r DateTime : [...] Updated DateTime 05/03/2023 170.18 cm 45.1 kg/m2 366554.6 g 128 mm[Hg] 70 mm[Hg] Susana Browne [facility] 3 14:01:18 Date Recorded Body height Body mass index (BMI) Body weight Systolic blood pressure Diastolic blood pressure Provider Name and Address Organization Details Last Updated DateTime 09/01/2023 170.18 cm 46 kg/m2 206080.1 6 g 116 mm[Hg] 74 mm[Hg] Naomie [facility] 4 13:22:36 Date Recorded Body height Body mass index (BMI) Body weight Systolic blood pressure Diastolic blood pressure Provider Name and Address Organization Details Last Updated DateTime 09/11/2024 170.18 cm 39.9 kg/m2 988252.0 5 g 150 mm[Hg] 100 mm[Hg] Mehreen Amado [facility] 5 12:18:49 Date Recorded Body height Body mass index (BMI) Body weight Systolic blood pressure Diastolic blood pressure Provider Name and Address Organization Details Last Updated DateTime 09/16/2024 170.18 cm 42.8 kg/m2 861551.7 2 g 124 mm[Hg] 77 mm[Hg] Naomie [facility] 5 09:32:35 Social History Question Answer Notes LastModified by Organizat ion Details LastModified Time Tobacco Smoking Status Current Every Day Smoker Mehreen Amado [facility] 05/15/2020 13:29:13 What Is Your Level Of Alcohol Consumption? None [email or web address] Information not available 09/11/2024 Are You Blind [...] Or The Highest Degree You Have Received? [id number] Information not available 09/01/2023 What Is Your [...] Used Smokeless Tobacco? Never Used Smokeless Tobacco [email or web address] Information not available 05/15/2020 How Much Tobacco Do You Smoke? No Information not available 09/01/2023 Do You Feel Stressed (tense, Restless, Nervous, Or Anxious, Or Unable To Sleep At Night)? [id number] Information not available 09/01/2023 Do You Use Any Illicit Or Recreational Drugs? Yes [email or web address] Information not available 09/11/2024 Do You Use Sunscreen Routinely? Yes Information not available 09/01/2023 Have You Used IV Drugs? No Information not available 09/01/2023 Sex: Unknown Functional Status Question Answer Note LastModified by Organizat ion Details LastModified Time Do you have difficulty walking or climbing stairs? No [email or web address] Information not available 09/11/2024 Are you able to walk? YESWOREST Information not available 09/01/2023 Are you able to care for yourself? Yes [email or web address] Information not available 09/11/2024 Do you have difficulty dressing or bathing? No [email or web address] Information not available 09/11/2024 What is your [...] Maternal Grandmother Family history of breast cancer [email or web address] Not available 2024 09:24:40 Paternal Grandfather Blood coagulation disorder [email or web address] Not [...] (Food, seasonal, environmental ) Y Other Y Drug/Latex Allergies/Reactions N Blood Transfusion N Breast Cancer N Dermatologic Disorders N Lung Disease N Defects or Inherited Disease N Breast Problem N Gestational Diabetes N Hematologic disorders N Anesthesia Complications N History of STI N Deep Vein Thrombosis N Polycystic ovary syndrome N Anxiety Disorder N Autoimmune disease N Arthritis N Polyps N Infertility N Acid Reflux (GERD) N History of abnormal pap N Cancer N Varicosities N Stroke N Neurologic/Epilepsy Y Endometriosis N High Cholesterol N Fibromyalgia N Headaches N Kidney Disease N Heart Problems N Thyroid Problems N Kidney or Bladder Problems N GI Problems N Eating Disorder [...] SNOMED-CT Code Diagnosis ICD10 Code Diagnosis Note [id number] Rupal Muller [place] [address] [address] 04/27/2020 16:17:59 04/27/2020 16:59:09 Contraception care management 418090921 Z30.9 Discussed all options in detail. Pt would like nexplanon. Discussed risk and benefit. Pt verbalized understand ing. If covered she will call us on the first day of her cycle to schedule placement. [id number] Betty Baker CNM [place] [address] [address] 05/15/2020 12:44:02 05/15/2020 15:05:09 Insertion of subcutaneous contraceptive 544865783 Z30.9 f/u wwe [id number] JUAN Hansen [place] [address],[place] [address] 05/03/2023 13:48:29 05/03/2023 14:39:37 Removal of subcutaneous contraceptive 487280993 Z30.46 Removal site was cleansed with betadine and 3cc of lidocaine used for anesthesia . Device was removed in normal fashion without difficulty . Steri stips and pressure bandage placed.enc ouraged daily PNVRTC for WWE, due for pap [id number] [facility] [address],[place] [address] 09/01/2023 13:13:39 09/05/2023 08:59:17 Vaginitis 61045424 N76.0 Suspect Yeast on exam and subjective reportsRx sentDeclin ed need std screen Counseled on medication R/B's, Most common side effects, & use. All questions were answered to patient satisfacti on. Time spent in visit is a total of 18 mins with at least 50% of visit consisting of counseling and review of plan of care. [id number] Linda Corley [place] [address],[place] [address] 09/11/2024 11:29:52 09/11/2024 12:26:58 Missed miscarriage 25822751 O02.1 Z3A.01 [id number] Betty Baker CNM [place] [address],[place] [address] 09/11/2024 11:30:08 09/11/2024 12:54:25 Threatened miscarriage 10633162 O20.0 plan labs today and mondayrevi ewed precaution scall if any changesdis cussed options if HCG does not decrease [id number] [place] [address],[place] [address] 09/16/2024 09:24:35 09/16/2024 10:11:51 Missed miscarriage 36781590 O02.1 Z3A.01 This patient is a 34 yo female who presents for missed discussed the etiology, frequency, natural history, and treatment of this condition. Spent more than 35 on the patients care. , the particular findings of her case, and detail of her the treatment options. We discussed the risk benefits of each option. She understand s the risk include infection and hemorrhage . She understand s a D&C also holds the risk of injury. She understand s that waiting can result in a septic that is even more difficult to treat. We talked about signs and symptoms of infection. Health Concerns Section Related Observation LastModified by Organization Detai ls LastModified Time None Recorded Concern Status LastModified by Organization Details LastModified Time None Recorded Advance Directives Directive None Recorded Payers Encounter Date Sequence Insurance Name Policy Number Policy Harris Covered Member ID Harris Member ID Guarantor Name 05/03/2023 1 [facility] ON OR AFTER 01/21/21 (MEDICAID REPLACEMENT - HMO) Miroslava Bailey [id number] Miroslava Bailey 09/01/2023 1 [facility] ON OR AFTER 01/21/21 (MEDICAID REPLACEMENT - HMO) Miroslava Bailey [id number] Miroslava Bailey 09/11/2024 1 [facility] ON OR AFTER 01/21/21 (MEDICAID REPLACEMENT - HMO) Miroslava Bailey [id number] Miroslava Bailey 09/11/2024 1 [facility] ON OR AFTER 01/21/21 (MEDICAID REPLACEMENT - HMO) Miroslava Bailey [id number] Miroslava Bailey 09/16/2024 1 [facility] ON OR AFTER 01/21/21 (MEDICAID REPLACEMENT - HMO) Miroslava Bailey [id number] Miroslava Bailey Notes Date Note Type Note Provider Name and Address Organization Details Recorded Time 05/03/2023 text/html 32yopresents for nexplanon removalnexplanon inserted 05/15/2020considering TTC JUAN Hansen [address], [place], [address], [facility] 05/03/2023 14:28:19 09/01/2023 text/html Vaginal/Vulvar ProblemReported bypatient.Location:hi jayshree Onset/Timing:abrupt Duration:present for 1-7 days Quality:itching; tender; irritation Severity:mild Context:recent antibiotic use Alleviating Factors:none Aggravating Factors:none Associated Symptoms:no vaginal pain; no vulvar swelling/erythema; no vulvar pain; no vulvar lesions; no pelvic pain; no dyspareunia; no dysuria; no fever; no abdominal pain;vaginal itching;vaginal irritation;vulvar itching/irritation [place], [place]- [address], [place], [address], [facility] 09/04/2023 23:47:37 09/11/2024 text/html +UPT, spotting, no crampingblood type B+ Betty Baker CNM [address], [place], [address], [facility] 09/11/2024 12:47:21 09/16/2024 text/html This patient is a 34 yo female who presents for missed discussed the etiology, frequency, natural history, and treatment of this condition. , the particular findings of her case, and detail of her the treatment options. We discussed the risk benefits of each option. She understands the risk include infection and hemorrhage. She understands a D&C also holds the risk of injury. She understands that waiting can result in a septic that is even more difficult to treat. We talked about signs and symptoms of infection. Aleksander Camp MD [address], [place], [address], [facility] 09/16/2024 10:10:34 OBGyn Episode Ob Episode Information Episode Created Date Number of Fetuses Patient Bloodtype Patient rh Status Prepregnancy Weight lbs Domestic Partner Domestic Partner Phone Father Name Rda Status 04/27/20 20 1 CLOSED Fetus Data [...] Domestic Partner Domestic Partner Phone Father Name Rda Status 09/11/19 25 1 CLOSED Fetus Data First Name Last Name Admitted to NICU Weight (g) Sex Living Outcome Pediatric Complications Fetus ID Race Codes Race Delivery Type , Spontane ous [id number] Sampson Calculation Initial Sampson Date Initial Exam [...]
--- OUTSIDE RECORDS SUMMARY | 2024-09-17 00:58 | XMS_ITS | Encounter Summary ---
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
--- OUTSIDE RECORDS SUMMARY | 2024-09-17 00:58 | XMS_ITS | Clinical Summary ---
Author Organization 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
--- OUTSIDE RECORDS SUMMARY | 2024-09-17 00:58 | XMS_ITS | Continuity of Care Document ---
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 Plan of Treatment Reminders Order Date Submit Date Provider Last Modified By Organization Details Last Modified Time Details Appointments SURG Suction D&C 2024 01:00P Art CAMP MD Not available Not available Not available SURG POST OP 2024 10:15A Art CAMP MD Not available Not available Not available Lab None recorded. Referral None recorded. Procedures None recorded. Surgeries dilation & curettage (SURG) [address], [facility] [address], [place], [address], 09/16/2024 11:03:00 Imaging None recorded. Medication Orders None recorded. Patient TargetsNo targets recorded. Patient InstructionsNo instructions recorded. Reason for Referral None Reported. Results Created Date Observation Date Name Description Value Unit Range Abnormal Flag Note LastModifiedBy Organization Detail LastModifiedTime 09/11/1909/11/2024 US, obste tric, trans vagin al No observ ation record ed. [email or web address] [place] [address], [place], [address], 09/11/2024 13:24:12 09/11/19 25 09/11/2024 US, obste tric, trans vagin al No observ ation record ed. hortensia Sher [address], [facility], [place], [address], 09/13/2024 00:15:06 Result Notes None recorded. Procedures Surgical History Date Name Laterality Status Provider Name and Address Organization Details Recorded Time 05/03/20 23 Nexplanon Removal completed JUAN Hansen [address], [place], [address], [facility] 05/03/2023 14:26:13 05/15/20 20 Control Implant Insertion completed Betty Baker CNM [address], [place], [address], [facility] 05/15/2020 14:42:53 07/31/19 20 Date of Last Pap Smear completed Nevin [facility] 04/27/2020 16:22:24 11/22/19 16 procedure on gallbladder completed [facility] 04/27/2020 15:09:21 07/24/19 14 Tonsillectomy completed [facility] 09/11/2024 12:56:21 07/24/19 13 extraction of wisdom tooth completed [facility] 09/11/2024 12:55:48 07/24/19 07 procedure on wrist completed [facility] 09/11/2024 12:56:10 07/24/19 05 procedure on wrist completed [facility] 09/11/2024 12:55:55 Imaging Results None recorded. [...] Prescrib darion Muhammad e: No Locat ion: [facility] odify By: desi subramanian DateTime : 03/20/20 10:15:00 AM Not Available Not Available Not Available Vienva 0.1 mg-20 mcg tablet TAKE 1 TABLET BY MOUTH EVERY DAY 09/01 completed Not Available Not Available Not Available Sarthak Inhub 250 mcg-50 mcg/dose powder for inhalatio [...] Updated DateTime 09/16/2024 170.18 cm 42.8 kg/m2 033628.7 2 g 124 mm[Hg] 77 mm[Hg] Naomie Doshi [facility] 09:32:35 Social History Question Answer Notes LastModified by Organizat ion Details LastModified Time Tobacco Smoking Status Current Every Day Smoker Mehreen gibson, [facility] 05/15/2020 13:29:13 What Is Your Level Of Alcohol Consumption? None [email or web address] Information not available 09/11/2024 Are You Blind [...] Or Vape? Current User Of Electronic Cigarettes [email or web address] Information not available 05/15/2020 What Is The Highest Grade Or Level Of School You Have Completed Or The Highest Degree You Have Received? 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 No Information not available 09/01/2023 What Was The Date Of Your Most Recent Tobacco Screening? 09/11/2024 [email or web address] Information not available 09/11/2024 Do You Use Protection During Sex? No Information not available 09/01/2023 Do You Use Your Seat Belt Or Car Seat Routinely? Yes Information not available 09/01/2023 Do You Have Smoke And Carbon Monoxide Detectors In Your Home? Yes Information not available 09/01/2023 Do You Or Have You Ever Used Smokeless Tobacco? Never Used Smokeless Tobacco Information not available 05/15/2020 How Much Tobacco Do You Smoke? No Information not available 09/01/2023 Do You Feel Stressed (tense, Restless, Nervous, Or Anxious, Or Unable To Sleep At Night)? [id number] Information not available 09/01/2023 Do You Use Any Illicit Or Recreational Drugs? Yes [email or web address] Information not available 09/11/2024 Do You Use Sunscreen Routinely? Yes Information not available 09/01/2023 Have You Used IV Drugs? No Information not available 09/01/2023 Sex: Unknown Functional Status Question Answer Note LastModified by Organizat ion Details LastModified Time Do you have difficulty walking or climbing stairs? No [email or web address] Information not available 09/11/2024 Are you able to walk? YESWOREST Information not available 09/01/2023 Are you able to care for yourself? Yes [email or web address] Information not available 09/11/2024 Do you have difficulty dressing or bathing? No Information not available 09/11/2024 What is your [...] Maternal Grandmother Family history of breast cancer [email or web address] Not available 2024 09:24:40 Paternal Grandfather Blood [...] SNOMED-CT Code Diagnosis ICD10 Code Diagnosis Note [id number] Linda Corley [place] [address] [address] 09/11/2024 11:29:52 09/11/2024 12:26:58 Missed miscarriage 27005219 O02.1 Z3A.01 [id number] [facility] [address] [address] 09/11/2024 11:30:08 09/11/2024 12:54:25 Threatened miscarriage 55477294 O20.0 plan labs today and mondayrevi ewed precaution scall if any changesdis cussed options if HCG does not decrease [id number] [place] [address],[place] [address] 09/16/2024 09:24:35 09/16/2024 10:11:51 Missed miscarriage 17372204 O02.1 Z3A.01 This patient is a 34 [...] Member ID Harris Member ID Guarantor Name 09/16/2024 1 [facility] - DOS ON OR AFTER 21 (MEDICAID REPLACEMENT - HMO) Miroslava Bailey [id number] Miroslava Bailey Notes Date Note Type Note Provider Name and Address Organization Details Recorded Time 09/16/2024 text/html This patient is a 34 [...] infection. Aleksander Camp MD [address], [place], [address], [facility] 09/16/2024 10:10:34 OBGyn Episode No OBEpisode recorded.
[2024-09-17 11:20] VITALS: BP 121/73; PULSE 85; RESP 18; TEMP 36.2; O2SAT 100
[2024-09-17] MEDS: ACETAMINOPHEN 500 MG TABLET 1000 MG PO (11:40)
[2024-09-17] MEDS: LACTATED RINGERS 1,000 ML 30 ML IV CONT (12:15)
--- NOTE | 2024-09-17 12:36 | WPDANESEPPF ---
Anes - Initial Pre Proc Eval Procedure: Operation Date: 09/17/24 13:00 Proposed Procedures p Suction Dilation and Curettage - Aleksander Kearns MD Date/Time: 09/17/24 12:36 Surgeon: Aleksander Kearns MD Pre Op Diagnosis: Missed AB Patient Data Age: 34 Gender: F Height: 1.7 m Weight: 121.8 kg Last Vital Signs Temp 36.2 C L 09/17/24 11:20 Pulse 85 09/17/24 11:20 Resp 18 09/17/24 11:20 BP 121/73 09/17/24 11:20 Pulse Ox 100 09/17/24 11:20 O2 Del Method Room Air 09/17/24 11:20 Allergies Allergy/AdvReac Type Severity Reaction Status Date / Time No Known Allergies Allergy Unknown Unknown Verified 09/17/24 11:17 Home Medications ?Medication ?Instructions ?Recorded ?Confirmed ?Type albuterol sulfate 90 mcg/actuation 2 inh inhalation Q8H PRN shortness 09/16/24 09/16/24 History aerosol inhaler of breath or wheezing fluticasone fur. 200 mcg-umeclid 1 inh inhalation DAILY 09/16/24 09/17/24 History 62.5 mcg-vilant 25 mcg inhalat.powder (Trelegy Ellipta) Patient hx anesthesia problems: none Family hx anesthesia problems: none Results Review: All pre-operative results and documents have been reviewed as part of the pre-operative evaluation. [facility] Social History Social History Smoking status: Never smoker Substance use type: marijuana Other substance usage details: Daily before Living arrangements: with family Spiritual care concerns: No Anes - Eval Final PreProcedure Day of Procedure 09/17/24 12:36 Patient weight: morbidly obese Heart: regular rate and rhythm Lungs: clear to auscultation Airway: Mallampati scale class II Neurological: alert and oriented Last oral intake: >/= 8 hours ASA classification: III Emergent: no Anesthetic plan: proceed Anesthesia type and monitoring: general GIVS and standard monitoring Results Review: All pre-operative results and documents have been reviewed as part of the pre-operative evaluation. Informed Consent: The patient's anesthetic plan and its attendant risks and benefits were discussed with the patient/family/POA. Questions were solicited and answers provided to the satisfaction of the patient/family/POA.
--- NOTE | 2024-09-17 12:43 | WPDHPUPDATE1 ---
History and Physical Update Update Date/Time: 09/17/24 12:43 History and Physical has been reviewed, including an updated exam of the patient. There are NO changes in the patient's condition. Risks, benefits, and alternatives have been discussed and questions answered. Patient agrees to proceed with procedure.
--- NOTE | 2024-09-17 12:45 | P.HP_ITS ---
H&P: HPI History of Present Illness Date/Time: 09/17/24 12:45 Chief Complaint: Missed miscarriage Narrative: 34-year-old female with missed miscarriage. We have agreed to perform suction D&C. The patient understands the details of the procedure. The procedure has been explained in detail. She understands the risks. She understands that injuries may occur that result in hospitalization, more surgery, and severe illness. She understands risk of hemorrhage and infection. She denies any chest pain or shortness of breath. She denies any nausea, vomiting, fever, chills. Review of Systems Review of Systems: All systems reviewed & are unremarkable except as noted in HPI and below Constitutional: Constitutional: Denies chills, Denies fatigue, Denies fever(s) and Denies weakness Eyes: Eyes: Denies blurry vision, Denies change in vision, Denies loss of peripheral vision, Denies loss of vision, Denies other visual disturbances and Denies eye pain ENT: Denies vertigo, Denies dizziness, Denies hearing loss, Denies mouth pain, Denies nasal obstruction, Denies neck mass and Denies neck pain Cardiovascular: Cardiovascular: Denies chest pain, Denies diaphoresis, Denies syncope, Denies leg edema and Denies dyspnea Respiratory: Respiratory: Denies chest congestion, Denies cough, Denies hemoptysis, Denies dyspnea and Denies wheezing Gastrointestinal: Gastrointestinal: Denies abdominal pain, Denies constipation, Denies diarrhea, Denies nausea and Denies vomiting Genitourinary: Genitourinary: Denies hematuria, Denies change in libido, Denies nocturia, Denies genital lesions, Denies flank pain and Denies urinary urgency Musculoskeletal: Musculoskeletal: Denies abnormal gait, Denies back pain, Denies myalgias, Denies arthralgias, Denies joint swelling, Denies muscle weakness and Denies neck pain Integumentary/Breasts: Skin/Breast: Denies swelling, Denies breast pain, Denies breast mass, Denies dry skin, Denies nipple discharge, Denies unusual bruising and Denies jaundice Neurologic: Denies Neuro-related abnormal movements, Denies Abnormal speech present, Denies abnormal gait, Denies behavioral changes, Denies confusion, Denies vertigo, Denies dizziness, Denies syncope, Denies loss of vision, Denies memory loss, Denies convulsions and Denies weakness Psychiatric: Psychiatric: Denies abnormal sleep pattern, Denies behavioral changes, Denies change in libido, Denies confusion, Denies depression, Denies anhedonia and Denies memory loss Endocrine: Endocrine: Reports no additional endocrine complaints, Denies c hange in libido and Denies fatigue Hematologic/Lymphatic: Hematologic/Lymphatic: Reports no additional hematologic/lymphatic complaints Allergic/Immunologic: Allergic/Immunologic: Reports no additional allergic/immunologic complaints and Denies wheezing PMFSH Social History Social History Smoking status: Never smoker Substance use type: marijuana Other substance usage details: Daily before Living arrangements: with family Spiritual care concerns: No Meds Home Medications and Allergies Home Medications ?Medication ?Instructions ?Recorded ?Confirmed ?Type albuterol sulfate 90 mcg/actuation 2 inh inhalation Q8H PRN shortness 09/16/24 09/16/24 History aerosol inhaler of breath or wheezing fluticasone fur. 200 mcg-umeclid 1 inh inhalation DAILY 09/16/24 09/17/24 History 62.5 mcg-vilant 25 mcg inhalat.powder (Trelegy Ellipta) Allergies Allergy/AdvReac Type Severity Reaction Status Date / Time No Known Allergies Allergy Unknown Unknown Verified 09/17/24 11:17 Vital Signs Vital Signs - 24 hr 09/17/24 11:20 Temperature 97.2 F L Pulse Rate 85 Respiratory Rate 18 Blood Pressure 121/73 Pulse Oximetry 100 Oxygen Delivery Room Air Exam Const: General: cooperative, healthy appearing, comfortable and no acute distress Orientation/consciousness: oriented to person, oriented to place and oriented to time HENMT: Head: normal to inspection Ears: external ears normal Face/Nose/Sinus: Normal external nose present and normal facial exam Face and sinus: normal facial exam Eyes: General: appearance normal, both eyes and all related structures Neck: Neck: normal visual inspection, trachea midline and supple Resp: Auscultation: clear to auscultation bilaterally, no crackles, no rales, no rhonchi and no wheezes Cardio: Rate: regular rate Rhythm: regular rhythm Heart sounds: no click, no murmurs and no rubs GI: GI Palp: No abdominal tenderness, No Soft to palpation, No Tenderness to palpation present (GI) and No Palpable mass present Auscultation: normal bowel sounds Skin: General skin exam: normal color and no rashes or lesions noted Neuro: General: oriented to person, oriented to place and oriented to time Extrem: General: normal to inspection, no joint enlargement, no clubbing, cyanosis or edema, no pedal edema and no calf tenderness Psych: Appearance: grossly normal Mental Status: mental status grossly normal Speech and movement: Normal speech and movement present Assessment and Plan Assessment and plan (1) Missed : Code(s): O02.1 - Missed Status: Acute Plan This patient is a 34-year-old female with missed miscarriage. We agreed to perform suction D&C. She understands risks, benefits, and alternatives. She has completed informed consent process is ready to proceed.
[2024-09-17] MEDS: LIDOCAINE 1% LOCAL INJ 10 ML VIAL INFILTRATE (13:00)
--- NOTE | 2024-09-17 13:15 | W.PM.PROC2 ---
Procedure Note - Detailed Date of Procedure 09/17/24 Pre-op Diagnosis Missed AB Post-op Diagnosis Same Procedure Performed Suction D&C Surgeon Aleksander Kearns MD Anesthesia MAC Indications missed Findings normal-appearing vulva vagina and cervix to. Moderate amount of products conception within the uterus. 8 cm uterus Description of Procedure the patient was taken the operating room. She was prepped and draped in dorsal lithotomy position after induction of mac anesthesia. A speculum was placed in the vagina. Cervix grasped with tenaculum. The cervix was dilated to about 1 cm Using Horn dilators. A 8. [place] curved curette was used to perform suction D&C. The curette was introduced and vacuum was applied. The curette was removed over all surfaces of the intrauterine cavity multiple times. This was done until all the surfaces were clear and had the familiar grainy texture they can be felt through the instrument. A sharp curette was then used to curettage all the surfaces. The suction cup was then reapplied 1 more time to remove any debris. The instruments were removed. The speculum and tenaculum were removed. The patient tolerated the procedure well. She was taken recovery room stable condition. Estimated Blood Loss 50 Drains No Packing No Pathology Yes Complications No immediate complications Condition Stable Disposition PACU
[2024-09-17 13:16] VITALS: BP 133/57; PULSE 78; RESP 16; O2SAT 100
[2024-09-17] MEDS: fentaNYL CITRATE INJ (*CRX) 100 MCG/2 ML VIAL 25 MCG IV PUSH ×2 (13:21→13:37)
[2024-09-17] MEDS: oxyCODONE HCL (*CRX) 5 MG TAB IR PO (13:41)
[2024-09-17 13:45] VITALS: BP 90/47; PULSE 85; RESP 16
[2024-09-17] MEDS: KETOROLAC 15 MG/ML VIAL (*BKC) IV PUSH (14:10)
[2024-09-17 14:15] VITALS: BP 105/50; PULSE 80; RESP 16
[2024-09-17 14:45] VITALS: BP 113/67; PULSE 60; RESP 16
== END 2024-09-17 15:06 | disposition home or self-care (01) ==
PROVIDERS: PCP Family Medicine; Visit Provider Obstetrics & Gynecology
PROC: (CPT 59820; principal; 2024-09-17 13:00)
DX: O02.1 Missed abortion (principal)
CPT/HCPCS: 59820; 36415; 85461; 86850; 86900; 86901; 88305; A9270; J1885; J2003; J2250; J2270; J3010; J7120